=== PATIENT | male | born 1945 | race Caucasian/White ===

== ENCOUNTER 2016-06-01 15:06 | Inpatient (IN) | payer MEDICARE, MEDICAID ==
[~2016-06-01] VITALS: Ht 180.3 cm; Wt 65.4 kg
[~2016-06-01 15:06] MED LIST: ACID1PAC PO; AMLO-511 PO; AUD NEB; BENZ-26 PO; BUDE0.5A3 NEB; DICL1OS OD; DIVA500T69 PO; DSS100 PO; FURO40 PO; INSNOV SQ; IPRNEB IH; LEVO75 PO; LORA-192 PO; MOM30 PO; MULT-1238 PO; ONDA-55 PO; PANT40TA25 PO; VITAD400 PO; ZOLP5TAB2 PO; [UNRECOGNIZED DRUG - CODE] PO
[2016-06-01 15:42] LABS: GLUCOSE,POINT OF CARE 135 MG/DL (70-110)
[2016-06-01] MEDS ORDERED: ATOR40TA28 PO (16:08)
[2016-06-01] MEDS ORDERED: METO25 PO (16:08)
[2016-06-01] MEDS ORDERED: CLOP75 PO (16:08)
[2016-06-01] MEDS ORDERED: LURA40 PO (16:08)
[2016-06-01] MEDS ORDERED: MUPIROCIN CALCIUM 2% 22 GM OINTMENT TP ONE (20:45)
[2016-06-01] MEDS ORDERED: LORazepam 1 MG TABLET PO PRN (21:00)
[2016-06-01] MEDS ORDERED: ZOLPIDEM TARTRATE 5 MG TABLET PO PRN (21:00)
[2016-06-01] MEDS ORDERED: HALOPERIDOL 5 MG TABLET PO PRN (21:00)
[2016-06-01 21:31] LABS: ANION GAP 10 mmol/L (8-16); CALCIUM, TOTAL 9.6 mg/dL (8.8-10.5); CARBON DIOXIDE 26 mmol/L (22-29); CHLORIDE 104 mmol/L (98-107); CREATININE 2.24 mg/dL (0.60-1.30); GLOMERULAR FILTR. RATE CALC 29 mL/min (>60); POTASSIUM 4.2 mmol/L (3.5-5.1); SODIUM SERUM 140 mmol/L (136-145); UREA NITROGEN, BLOOD 62 mg/dL (7-18)
[2016-06-01 21:46] LABS: ALANINE AMINOTRANSFERASE 25 U/L (12-78); ALBUMIN 3.4 g/dL (3.4-5.0); ASPARTATE AMINOTRANSFERASE 29 U/L (15-37); BILIRUBIN,TOTAL 0.2 mg/dL (0.1-1.0); THYROID STIMULATING HORMONE 1.16 uIU/mL (0.36-3.74); TOTAL PROTEIN, SERUM 7.5 g/dL (6.4-8.2); VALPROIC ACID 13 mcg/mL (50-100)
[2016-06-01] MEDS: RisperiDONE 2 MG TABLET PO SCH (23:30)
[2016-06-02 02:55] VITALS: BP 105/63
[2016-06-02 03:02] VITALS: BP 105/63
[2016-06-02] MEDS: RisperiDONE 2 MG TABLET PO SCH ×2 (09:31→18:55)
[2016-06-02] MEDS ORDERED: DEXTROSE 50%-WATER 25 GM/50 ML SYRINGE IVP PRN (15:15)
[2016-06-02] MEDS ORDERED: INSULIN ASPART 100 UNITS/ML SQ PRN (15:15)
[2016-06-02] MEDS ORDERED: LEVO100 PO (15:25)
[2016-06-02 16:00] VITALS: BP 114/72
[2016-06-03 06:13] LABS: GLUCOSE,POINT OF CARE 105 MG/DL (70-110)
[2016-06-03] MEDS: MULTIVITAMINS WITH MINERALS, THERAPEUTIC TABLET PO SCH (09:50)
[2016-06-03] MEDS: CLOPIDOGREL BISULFATE 75 MG TABLET PO SCH (09:51)
[2016-06-03] MEDS: DIVALPROEX SODIUM 500 MG ER TABLET PO SCH ×2 (09:53→17:24)
[2016-06-03] MEDS: RisperiDONE 3 MG TABLET PO SCH ×2 (09:53→17:24)
[2016-06-03] MEDS: MUPIROCIN CALCIUM 2% 22 GM OINTMENT NASAL SCH ×2 (11:31→17:24)
[2016-06-03 11:32] LABS: GLUCOSE,POINT OF CARE 110 MG/DL (70-110)
[2016-06-03 16:26] VITALS: BP 138/75
[2016-06-04] MEDS: MUPIROCIN CALCIUM 2% 22 GM OINTMENT NASAL SCH ×2 (09:00→17:47)
[2016-06-04] MEDS: RisperiDONE 3 MG TABLET PO SCH ×2 (13:44→17:47)
[2016-06-04] MEDS: CLOPIDOGREL BISULFATE 75 MG TABLET PO SCH (13:44)
[2016-06-04] MEDS: MULTIVITAMINS WITH MINERALS, THERAPEUTIC TABLET PO SCH (13:44)
[2016-06-04] MEDS: DIVALPROEX SODIUM 500 MG ER TABLET PO SCH ×2 (13:44→17:47)
[2016-06-04] MEDS: SULFAMETHOX/TRIMETH DS 800-160 MG/TABLET PO SCH ×2 (13:44→17:47)
[2016-06-04] MEDS: DOXYCYCLINE 100 MG CAPSULE PO SCH ×2 (13:45→18:50)
[2016-06-04 14:26] LABS: APPEARANCE,URINE CLEAR (CLEAR); GLUCOSE, URINE (UA) NEGATIVE (NEGATIVE); KETONES,URINE NEGATIVE (NEGATIVE); LEUKOCYTE ESTERASE ,URINE NEGATIVE (NEGATIVE); OCCULT BLOOD,URINE NEGATIVE (NEGATIVE); PROTEIN,URINE POS 1+ (NEGATIVE)
[2016-06-04 14:27] LABS: ADD UA MICROSCOPIC NO
[2016-06-04 19:38] VITALS: BP 129/77
[2016-06-05] MEDS: MULTIVITAMINS WITH MINERALS, THERAPEUTIC TABLET PO SCH (08:56)
[2016-06-05] MEDS: DOXYCYCLINE 100 MG CAPSULE PO SCH (08:56)
[2016-06-05] MEDS: RisperiDONE 3 MG TABLET PO SCH (08:57)
[2016-06-05] MEDS: CLOPIDOGREL BISULFATE 75 MG TABLET PO SCH (08:57)
[2016-06-05] MEDS: SULFAMETHOX/TRIMETH DS 800-160 MG/TABLET PO SCH (08:57)
[2016-06-05] MEDS: DIVALPROEX SODIUM 500 MG ER TABLET PO SCH (08:57)
[2016-06-05] MEDS: MUPIROCIN CALCIUM 2% 22 GM OINTMENT NASAL SCH (09:00)
[2016-06-05 12:24] VITALS: BP 104/62
[2016-06-05] MEDS ORDERED: DOXY150T PO (12:46)
[2016-06-05] MEDS ORDERED: MUPI1OIN4 NS (12:47)
[2016-06-05] MEDS ORDERED: BACTDSB PO (12:48)
[2016-06-05] MEDS ORDERED: RISP3 PO (12:48)
== END 2016-06-05 14:20 | disposition home or self-care (01) | DRG 750 ==
LOC: EMS 15:08 → 3EI 06-02 00:05
PROVIDERS: ADMIT Psychiatry & Neurology Child & Adolescent Psychiatry; ATTEND Psychiatry & Neurology Child & Adolescent Psychiatry
DX: F25.0 Schizoaffective disorder, bipolar type (principal); J11.00 Influenza due to unidentified influenza virus with unspecified type of pneumonia; N17.9 Acute kidney failure, unspecified; I13.0 Hypertensive heart and chronic kidney disease with heart failure and stage 1 through stage 4 chronic kidney disease, or unspecified chronic kidney disease; I50.42 Chronic combined systolic (congestive) and diastolic (congestive) heart failure; E11.52 Type 2 diabetes mellitus with diabetic peripheral angiopathy with gangrene; D64.9 Anemia, unspecified; S91.105A Unspecified open wound of left lesser toe(s) without damage to nail, initial encounter; E11.21 Type 2 diabetes mellitus with diabetic nephropathy; E78.5 Hyperlipidemia, unspecified; E03.9 Hypothyroidism, unspecified; N18.3 Chronic kidney disease, stage 3 (moderate); I25.10 Atherosclerotic heart disease of native coronary artery without angina pectoris; X58.XXXA Exposure to other specified factors, initial encounter; E55.9 Vitamin D deficiency, unspecified; Z53.29 Procedure and treatment not carried out because of patient's decision for other reasons; K21.9 Gastro-esophageal reflux disease without esophagitis; E11.22 Type 2 diabetes mellitus with diabetic chronic kidney disease; Z79.899 Other long term (current) drug therapy; Z89.511 Acquired absence of right leg below knee; Z87.891 Personal history of nicotine dependence; Z79.4 Long term (current) use of insulin; Z89.422 Acquired absence of other left toe(s); Z22.322 Carrier or suspected carrier of Methicillin resistant Staphylococcus aureus; Y93.89 Activity, other specified; Y92.89 Other specified places as the place of occurrence of the external cause; Y99.8 Other external cause status
CPT/HCPCS: 82570; 82962; 84156; 84300; 84443; 84540; 87070; 87081; 87147; 87205; 99285; G0480

== ENCOUNTER → 2016-07-12 | Outpatient (CLI) | payer MEDICARE, OTHER ==
[~2016-07-12] VITALS: Ht 180.3 cm; Wt 70.7 kg
[~2016-07-12] MED LIST changes: +ACET-2247 PO; +ACET1TAB12 PO; -ACID1PAC PO; -AMLO-511 PO; +ASPI81 PO; +ATOR40TA28 PO; +BACTDSB PO; -BENZ-26 PO; +BISA10S PR; -BUDE0.5A3 NEB; +BUME1TAB30 PO; +CLOP75 PO; -DICL1OS OD; +DOXY150T PO; +EPOE10IM SQ; +HALOD100I IM; +INSU100V12 SQ; +LEVO100 PO; +LEVO50TA4 PO; -LEVO75 PO; -LORA-192 PO; +LORA0.5T2 PO; +METO25 PO; +MUPI1OIN4 NS; -ONDA-55 PO; +ONDA4 PO; +PETR113O TP; +PIPE2.255 IV; +RISP3 PO; +VANC500FZ IV; -VITAD400 PO; +ZOLP5 PO; -ZOLP5TAB2 PO; -[UNRECOGNIZED DRUG - CODE] PO
[2016-07-12 10:52] VITALS: BP 109/65
== END | disposition home or self-care (01) ==
LOC: HBOWC 09:53
PROVIDERS: ATTEND Emergency Medicine
DX: S91.102D Unspecified open wound of left great toe without damage to nail, subsequent encounter (principal); B95.62 Methicillin resistant Staphylococcus aureus infection as the cause of diseases classified elsewhere; E11.51 Type 2 diabetes mellitus with diabetic peripheral angiopathy without gangrene; B36.9 Superficial mycosis, unspecified; M21.42 Flat foot [pes planus] (acquired), left foot; F99 Mental disorder, not otherwise specified; E11.22 Type 2 diabetes mellitus with diabetic chronic kidney disease; I13.0 Hypertensive heart and chronic kidney disease with heart failure and stage 1 through stage 4 chronic kidney disease, or unspecified chronic kidney disease; N18.4 Chronic kidney disease, stage 4 (severe); I50.42 Chronic combined systolic (congestive) and diastolic (congestive) heart failure; E78.5 Hyperlipidemia, unspecified; K21.9 Gastro-esophageal reflux disease without esophagitis; E03.9 Hypothyroidism, unspecified; M79.675 Pain in left toe(s); Z87.891 Personal history of nicotine dependence; Z79.4 Long term (current) use of insulin; Z89.511 Acquired absence of right leg below knee; Z89.422 Acquired absence of other left toe(s); X58.XXXD Exposure to other specified factors, subsequent encounter
CPT/HCPCS: 11720; 97597

== ENCOUNTER 2016-07-16 11:17 | Emergency (ER) | payer MEDICARE, OTHER ==
[~2016-07-16] VITALS: Ht 170.2 cm; Wt 73.5 kg
[~2016-07-16 11:17] MED LIST changes: -ACET-2247 PO; -ACET1TAB12 PO; -ASPI81 PO; -ATOR40TA28 PO; -AUD NEB; -BISA10S PR; -BUME1TAB30 PO; -DSS100 PO; -EPOE10IM SQ; -FURO40 PO; -HALOD100I IM; -INSU100V12 SQ; -IPRNEB IH; -LEVO100 PO; -LEVO50TA4 PO; -LORA0.5T2 PO; -METO25 PO; -MOM30 PO; -ONDA4 PO; -PANT40TA25 PO; -PETR113O TP; -PIPE2.255 IV; -VANC500FZ IV; -ZOLP5 PO
[2016-07-16] MEDS ORDERED: HALOD100I IM (11:32)
[2016-07-16] MEDS ORDERED: LEVO50TA4 PO (11:32)
[2016-07-16] MEDS ORDERED: DSS100 PO (11:32)
[2016-07-16] MEDS ORDERED: ATOR40TA28 PO (11:32)
[2016-07-16 11:43] LABS: GLUCOSE,POINT OF CARE 128 MG/DL (70-110)
[2016-07-16 12:11] LABS: BASOPHILS # (AUTO) 0.04 K/uL (0.00-0.20); BASOPHILS % (AUTO) 0.6 % (0.0-2.0); EOSINOPHILS # (AUTO) 0.32 K/uL (0.00-0.70); EOSINOPHILS % (AUTO) 4.25 % (1.0-6.0); LYMPHOCYTES # (AUTO) 1.4 K/uL (1.0-4.8); LYMPHOCYTES % (AUTO) 18.2 % (22.0-44.0); MEAN CORPUSCULAR HEMOGLOBIN 27.2 pg (26.0-34.0); MEAN CORPUSCULAR HGB CONC 33.1 G/dL (31.0-37.0); MEAN CORPUSCULAR VOLUME 82 fL (80-100); MONOCYTES % (AUTO) 13.3 % (2.0-9.0); NEUTROPHILS # (AUTO) 4.8 K/uL (1.8-7.7); NEUTROPHILS % (AUTO) 63.7 % (40.0-70.0); PLATELET COUNT (AUTO) 312 K/uL (150-450); RED BLOOD CELL COUNT(AUTO) 2.46 MIL/uL (4.50-5.90); RED CELL DISTRIBUTION WIDTH 18.6 % (11.5-14.5); WHITE BLOOD COUNT (AUTO) 7.5 K/uL (4.5-11.0)
[2016-07-16 12:15] LABS: HEMOGLOBIN 6.7 g/dL (13.5-17.5)
[2016-07-16 12:16] LABS: HEMATOCRIT 20.2 % (41-53)
[2016-07-16 12:17] LABS: INR 1.2 (0.9-1.1); PROTHROMBIN TIME 12.7 SEC (9.4-11.6)
[2016-07-16 12:28] LABS: ANION GAP 8 mmol/L (8-16); CARBON DIOXIDE 24 mmol/L (22-29); CHLORIDE 104 mmol/L (98-107); CREATININE 2.77 mg/dL (0.60-1.30); GLOMERULAR FILTR. RATE CALC 23 mL/min (>60); POTASSIUM 4.4 mmol/L (3.5-5.1); SODIUM SERUM 136 mmol/L (136-145); UREA NITROGEN, BLOOD 60 mg/dL (7-18)
[2016-07-16 12:41] LABS: RBC MORPHOLOGY COMMENT ABNORMAL RBC MORPH
[2016-07-16 12:42] VITALS: BP 112/56
[2016-07-16 12:47] LABS: B-TYPE NATRIURETIC PEPTIDE 3100 pg/mL (0-100)
[2016-07-16 12:56] LABS: ALANINE AMINOTRANSFERASE 20 U/L (12-78); ALBUMIN 2.1 g/dL (3.4-5.0); ASPARTATE AMINOTRANSFERASE 14 U/L (15-37); BILIRUBIN,TOTAL 0.2 mg/dL (0.1-1.0); CREATINE KINASE MB 2.3 ng/mL (0-5); CREATINE KINASE, TOTAL 122 U/L (39-308); TOTAL PROTEIN, SERUM 5.9 g/dL (6.4-8.2)
[2016-07-16] MEDS ORDERED: PANTOPRAZOLE SODIUM 80 MG in SODIUM CHLORIDE 0.9% 500 ML IV SCH (14:30)
[2016-07-16] MEDS ORDERED: PANTOPRAZOLE SODIUM 80 MG in SODIUM CHLORIDE 0.9% 50 ML IV ONE (14:30)
[2016-07-16] MEDS ORDERED: INSULIN ASPART 100 UNITS/ML SQ PRN (14:45)
[2016-07-16] MEDS ORDERED: DEXTROSE 50%-WATER 25 GM/50 ML SYRINGE IVP PRN (14:45)
== END 2016-07-16 16:34 | disposition home or self-care (01) ==
LOC: EMS 11:21
DX: N17.9 Acute kidney failure, unspecified (principal); D64.9 Anemia, unspecified; I73.9 Peripheral vascular disease, unspecified; E11.9 Type 2 diabetes mellitus without complications; I10 Essential (primary) hypertension; I25.10 Atherosclerotic heart disease of native coronary artery without angina pectoris; E78.5 Hyperlipidemia, unspecified; E03.9 Hypothyroidism, unspecified; I50.42 Chronic combined systolic (congestive) and diastolic (congestive) heart failure; F17.200 Nicotine dependence, unspecified, uncomplicated; Z79.4 Long term (current) use of insulin; K92.2 Gastrointestinal hemorrhage, unspecified; F20.9 Schizophrenia, unspecified; Z89.511 Acquired absence of right leg below knee
CPT/HCPCS: 71010; 80053; 82550; 82553; 82962; 83880; 84484; 85025; 85610; 85730; 93005; 93306; 99285; C9113; J7040; J7050

== ENCOUNTER → 2016-07-24 | Outpatient (CLI) | payer MEDICARE, OTHER ==
[~2016-07-24] MED LIST changes: +ACET-2247 PO; +ACET1TAB12 PO; +ASPI81 PO; +ATOR40TA28 PO; +AUD NEB; -BACTDSB PO; +BISA10S PR; +BUME1TAB30 PO; -DOXY150T PO; +DSS100 PO; +EPOE10IM SQ; +FURO40 PO; +HALOD100I IM; +INSU100V12 SQ; +IPRNEB IH; +LEVO100 PO; +LEVO50TA4 PO; +LORA0.5T2 PO; +METO25 PO; +MOM30 PO; -MUPI1OIN4 NS; +ONDA4 PO; +PANT40TA25 PO; +PETR113O TP; +PIPE2.255 IV; +VANC500FZ IV; +ZOLP5 PO
[2016-07-24 10:17] VITALS: BP 123/61
== END | disposition home or self-care (01) ==
LOC: HBOWC 09:42
PROVIDERS: ATTEND Emergency Medicine
DX: E11.621 Type 2 diabetes mellitus with foot ulcer (principal); L97.521 Non-pressure chronic ulcer of other part of left foot limited to breakdown of skin; B35.1 Tinea unguium; E03.9 Hypothyroidism, unspecified; E11.52 Type 2 diabetes mellitus with diabetic peripheral angiopathy with gangrene; E11.21 Type 2 diabetes mellitus with diabetic nephropathy; E11.22 Type 2 diabetes mellitus with diabetic chronic kidney disease; I13.0 Hypertensive heart and chronic kidney disease with heart failure and stage 1 through stage 4 chronic kidney disease, or unspecified chronic kidney disease; N18.4 Chronic kidney disease, stage 4 (severe); I50.42 Chronic combined systolic (congestive) and diastolic (congestive) heart failure; E78.5 Hyperlipidemia, unspecified; K21.9 Gastro-esophageal reflux disease without esophagitis; Z79.4 Long term (current) use of insulin; Z89.422 Acquired absence of other left toe(s); Z89.511 Acquired absence of right leg below knee; Z87.891 Personal history of nicotine dependence
CPT/HCPCS: 97597

== ENCOUNTER 2016-07-29 15:45 | Inpatient (IN) | payer MEDICARE, OTHER ==
[~2016-07-29] VITALS: Ht 175.3 cm; Wt 86.9 kg
[2016-07-29] VITALS (9 sets, daily range): BP systolic 109–124; BP diastolic 51–64
[~2016-07-29 15:45] MED LIST changes: -ACET-2247 PO; -ACET1TAB12 PO; -ASPI81 PO; -AUD NEB; -BISA10S PR; -BUME1TAB30 PO; -EPOE10IM SQ; -FURO40 PO; -INSU100V12 SQ; -IPRNEB IH; -LEVO100 PO; -LORA0.5T2 PO; -METO25 PO; -MOM30 PO; -ONDA4 PO; -PANT40TA25 PO; -PETR113O TP; -PIPE2.255 IV; -VANC500FZ IV; -ZOLP5 PO
[2016-07-29] MEDS ORDERED: FURO40 PO (16:19)
[2016-07-29 17:16] LABS: BASOPHILS % (AUTO) 0.2 % (0.0-2.0); EOSINOPHILS % (AUTO) 2.2 % (1.0-6.0); LYMPHOCYTES # (AUTO) 1.6 K/uL (1.0-4.8); LYMPHOCYTES % (AUTO) 20.6 % (22.0-44.0); MEAN CORPUSCULAR HEMOGLOBIN 26.1 pg (26.0-34.0); MEAN CORPUSCULAR HGB CONC 31.9 G/dL (31.0-37.0); MEAN CORPUSCULAR VOLUME 82 fL (80-100); MONOCYTES # (AUTO) 0.7 K/uL (0.1-1.0); MONOCYTES % (AUTO) 8.4 % (2.0-9.0); NEUTROPHILS # (AUTO) 5.3 K/uL (1.8-7.7); NEUTROPHILS % (AUTO) 68.6 % (40.0-70.0); PLATELET COUNT (AUTO) 184 K/uL (150-450); RED BLOOD CELL COUNT(AUTO) 2.66 MIL/uL (4.50-5.90); RED CELL DISTRIBUTION WIDTH 19.7 % (11.5-14.5); WHITE BLOOD COUNT (AUTO) 7.8 K/uL (4.5-11.0)
[2016-07-29 17:26] LABS: ANION GAP 10 mmol/L (8-16); CALCIUM, TOTAL 8.4 mg/dL (8.8-10.5); CARBON DIOXIDE 26 mmol/L (22-29); CHLORIDE 101 mmol/L (98-107); CREATININE 2.41 mg/dL (0.60-1.30); GLOMERULAR FILTR. RATE CALC 27 mL/min (>60); POTASSIUM 4.4 mmol/L (3.5-5.1); SODIUM SERUM 137 mmol/L (136-145); UREA NITROGEN, BLOOD 67 mg/dL (7-18)
[2016-07-29 17:27] LABS: HEMOGLOBIN 6.9 g/dL (13.5-17.5)
[2016-07-29 17:28] LABS: HEMATOCRIT 21.8 % (41-53)
[2016-07-29 17:31] LABS: INR 1.1 (0.9-1.1); PROTHROMBIN TIME 11.5 SEC (9.4-11.6)
[2016-07-29 17:32] LABS: ALANINE AMINOTRANSFERASE 12 U/L (12-78); ALBUMIN 2.2 g/dL (3.4-5.0); ASPARTATE AMINOTRANSFERASE 10 U/L (15-37); BILIRUBIN,TOTAL 0.2 mg/dL (0.1-1.0); CREATINE KINASE, TOTAL 74 U/L (39-308); TOTAL PROTEIN, SERUM 6.1 g/dL (6.4-8.2)
[2016-07-29 17:43] LABS: B-TYPE NATRIURETIC PEPTIDE 3010 pg/mL (0-100)
[2016-07-29 17:52] LABS: RBC MORPHOLOGY COMMENT ABNORMAL RBC MORPH
[2016-07-29 18:32] LABS: APPEARANCE,URINE CLEAR (CLEAR); GLUCOSE, URINE (UA) NEGATIVE (NEGATIVE); KETONES,URINE NEGATIVE (NEGATIVE); LEUKOCYTE ESTERASE ,URINE NEGATIVE (NEGATIVE); OCCULT BLOOD,URINE NEGATIVE (NEGATIVE); PROTEIN,URINE NEGATIVE (NEGATIVE)
[2016-07-29 18:34] LABS: ADD UA MICROSCOPIC NO
[2016-07-29] MEDS ORDERED: LEVO100 PO (18:35)
[2016-07-29] MEDS ORDERED: FUROSEMIDE 20 MG/2 ML VIAL IVP ONE (18:45)
[2016-07-29] MEDS ORDERED: FUROSEMIDE 40 MG/4 ML VIAL IVP ONE (18:45)
[2016-07-29] MEDS ORDERED: ACETAMINOPHEN 325 MG TABLET PO PRN (19:45)
[2016-07-29] MEDS ORDERED: 0.9% SODIUM CHLORIDE 10 ML SYRINGE IVP PRN (19:45)
[2016-07-29] MEDS ORDERED: ONDANSETRON HCL 4 MG/2 ML VIAL IVP PRN ×2 (19:45→22:30)
[2016-07-29] MEDS ORDERED: SODIUM CHLORIDE 0.9% 250 ML IV ONE ×2 (19:45→23:10)
[2016-07-29] MEDS ORDERED: DEXTROSE 50%-WATER 25 GM/50 ML SYRINGE IVP PRN (22:30)
[2016-07-29] MEDS ORDERED: BISACODYL 10 MG RECTAL RECTAL SUPPOSITORY PR PRN (22:30)
[2016-07-29] MEDS ORDERED: MAGNESIUM HYDROXIDE SUSPENSION 30 ML UDCUP PO PRN (22:30)
[2016-07-29] MEDS ORDERED: ZOLPIDEM TARTRATE 5 MG TABLET PO PRN (22:30)
[2016-07-29] MEDS ORDERED: LORazepam 0.5 MG TABLET PO PRN (22:30)
[2016-07-30] VITALS (14 sets, daily range): BP systolic 108–126; BP diastolic 46–70
[2016-07-30 02:07] LABS: GLUCOSE,POINT OF CARE 165 MG/DL (70-110)
[2016-07-30] MEDS: LEVOTHYROXINE SODIUM 100 MCG TABLET PO SCH (05:56)
[2016-07-30] MEDS: INSULIN ASPART 100 UNITS/ML SQ PRN ×3 (06:01→20:57)
[2016-07-30 07:09] LABS: EOSINOPHILS % (AUTO) 1.5 % (1.0-6.0); HEMATOCRIT 26.1 % (41-53); HEMOGLOBIN 8.6 g/dL (13.5-17.5); LYMPHOCYTES # (AUTO) 1.3 K/uL (1.0-4.8); LYMPHOCYTES % (AUTO) 14.9 % (22.0-44.0); MEAN CORPUSCULAR VOLUME 82 fL (80-100); MONOCYTES # (AUTO) 0.8 K/uL (0.1-1.0); NEUTROPHILS # (AUTO) 6.3 K/uL (1.8-7.7); NEUTROPHILS % (AUTO) 74.6 % (40.0-70.0); PLATELET COUNT (AUTO) 183 K/uL (150-450); RED BLOOD CELL COUNT(AUTO) 3.18 MIL/uL (4.50-5.90); RED CELL DISTRIBUTION WIDTH 18.8 % (11.5-14.5); WHITE BLOOD COUNT (AUTO) 8.4 K/uL (4.5-11.0)
[2016-07-30 07:29] LABS: ALBUMIN 2.1 g/dL (3.4-5.0); BILIRUBIN,TOTAL 0.3 mg/dL (0.1-1.0); CALCIUM, TOTAL 8.2 mg/dL (8.8-10.5); CHOL/HDL RATIO 2.7 (4.2-7.3); CREATININE 2.24 mg/dL (0.60-1.30); MAGNESIUM 1.7 mg/dL (1.80-2.40); POTASSIUM 4.1 mmol/L (3.5-5.1); THYROID STIMULATING HORMONE 3.12 uIU/mL (0.36-3.74); TOTAL PROTEIN, SERUM 5.9 g/dL (6.4-8.2)
[2016-07-30 08:37] LABS: GLUCOSE COMMENT 1 Received Meds; GLUCOSE,POINT OF CARE 158 MG/DL (70-110)
[2016-07-30] MEDS: DOCUSATE SODIUM 100 MG CAPSULE PO SCH ×2 (09:00→20:43)
[2016-07-30] MEDS: DIVALPROEX SODIUM 500 MG ER TABLET PO SCH ×2 (09:01→20:44)
[2016-07-30] MEDS: MULTIVITAMINS, THERAPEUTIC TABLET PO SCH (09:01)
[2016-07-30] MEDS: RisperiDONE 3 MG TABLET PO SCH ×2 (09:01→20:44)
[2016-07-30] MEDS ORDERED: ACETAMINOPHEN 325 MG TABLET PO PRN (10:00)
[2016-07-30] MEDS ORDERED: EPOETIN ALFA 10,000 UNITS/ML VIAL SQ SCH (10:30)
[2016-07-30] MEDS ORDERED: MAGNESIUM SULFATE 2 GM in DEXTROSE 5%-WATER 50 ML IV PRN (11:00)
[2016-07-30] MEDS ORDERED: MAGNESIUM SULFATE 4 GM/WATER 100 ML IV PRN (11:00)
[2016-07-30] MEDS: MAGNESIUM OXIDE 400 MG TABLET PO PRN ×3 (11:16→23:04)
[2016-07-30] MEDS: ACETAMINOPHEN/CODEINE 300-30 MG TABLET PO PRN ×2 (11:16→18:51)
[2016-07-30 11:47] LABS: RBC MORPHOLOGY COMMENT ABNORMAL RBC MORPH
[2016-07-30] MEDS ORDERED: MAGNESIUM SULFATE 3 GM in DEXTROSE 5%-WATER 100 ML IV ONE (16:45)
[2016-07-30 19:51] LABS: GLUCOSE,POINT OF CARE 136 MG/DL (70-110)
[2016-07-30 20:02] LABS: GLUCOSE,POINT OF CARE 198 MG/DL (70-110)
[2016-07-30] MEDS: BUMETANIDE 0.25 MG/ML 10 ML VIAL IVP SCH (20:43)
[2016-07-30] MEDS ORDERED: INSULIN DETEMIR 100 UNITS/ML SQ SCH (21:00)
[2016-07-30] MEDS ORDERED: ATORVASTATIN CALCIUM 40 MG TABLET PO SCH (21:00)
[2016-07-31 00:47] VITALS: BP 108/52
[2016-07-31] MEDS: ACETAMINOPHEN/CODEINE 300-30 MG TABLET PO PRN ×2 (00:51→08:40)
[2016-07-31 04:20] VITALS: BP 117/59
[2016-07-31] MEDS: LEVOTHYROXINE SODIUM 100 MCG TABLET PO SCH (06:22)
[2016-07-31 06:45] LABS: BASOPHILS % (AUTO) 0.6 % (0.0-2.0); EOSINOPHILS % (AUTO) 2.9 % (1.0-6.0); HEMATOCRIT 23.9 % (41-53); HEMOGLOBIN 7.9 g/dL (13.5-17.5); LYMPHOCYTES # (AUTO) 1.8 K/uL (1.0-4.8); MEAN CORPUSCULAR HEMOGLOBIN 27.1 pg (26.0-34.0); MEAN CORPUSCULAR HGB CONC 33.1 G/dL (31.0-37.0); MEAN CORPUSCULAR VOLUME 82 fL (80-100); MONOCYTES % (AUTO) 11.9 % (2.0-9.0); NEUTROPHILS # (AUTO) 5.1 K/uL (1.8-7.7); NEUTROPHILS % (AUTO) 62.6 % (40.0-70.0); PLATELET COUNT (AUTO) 178 K/uL (150-450); RED BLOOD CELL COUNT(AUTO) 2.92 MIL/uL (4.50-5.90); RED CELL DISTRIBUTION WIDTH 19.2 % (11.5-14.5); WHITE BLOOD COUNT (AUTO) 8.2 K/uL (4.5-11.0)
[2016-07-31 07:33] VITALS: BP 108/50
[2016-07-31 07:33] LABS: RBC MORPHOLOGY COMMENT ABNORMAL RBC MORPH
[2016-07-31 07:44] LABS: CALCIUM, TOTAL 7.9 mg/dL (8.8-10.5); CREATININE 2.15 mg/dL (0.60-1.30); MAGNESIUM 1.7 mg/dL (1.80-2.40)
[2016-07-31 07:47] LABS: GLUCOSE,POINT OF CARE 90 MG/DL (70-110)
[2016-07-31] MEDS: MAGNESIUM OXIDE 400 MG TABLET PO PRN (08:40)
[2016-07-31] MEDS: DOCUSATE SODIUM 100 MG CAPSULE PO SCH (08:41)
[2016-07-31] MEDS: RisperiDONE 3 MG TABLET PO SCH (08:41)
[2016-07-31] MEDS: MULTIVITAMINS, THERAPEUTIC TABLET PO SCH (08:41)
[2016-07-31] MEDS: DIVALPROEX SODIUM 500 MG ER TABLET PO SCH (08:41)
[2016-07-31] MEDS: BUMETANIDE 0.25 MG/ML 10 ML VIAL IVP SCH (08:42)
[2016-07-31 11:16] VITALS: BP 116/48
[2016-07-31] MEDS ORDERED: ATOR40TA28 PO (14:40)
[2016-07-31] MEDS ORDERED: BUME1TAB30 PO (14:58)
[2016-07-31] MEDS ORDERED: EPOE10IM SQ (15:00)
[2016-07-31] MEDS ORDERED: INSU100V12 SQ (15:01)
[2016-07-31] MEDS ORDERED: ACET1TAB12 PO (15:03)
[2016-07-31] MEDS ORDERED: ACET-2247 PO (15:04)
[2016-07-31] MEDS ORDERED: BISA10S PR (15:05)
[2016-07-31] MEDS ORDERED: INSNOV SQ (15:06)
[2016-07-31] MEDS ORDERED: LORA0.5T2 PO (15:07)
[2016-07-31] MEDS ORDERED: MOM30 PO (15:08)
[2016-07-31] MEDS ORDERED: ONDA4 PO (15:09)
[2016-07-31] MEDS ORDERED: ZOLP5 PO (15:09)
[2016-07-31 15:34] VITALS: BP 111/42
[2016-08-01 01:42] LABS: GLUCOSE,POINT OF CARE 176 MG/DL (70-110)
[2016-08-08 14:43] LABS: GLUCOSE,POINT OF CARE 139 MG/DL (70-110)
[2016-08-08 14:43] LABS: GLUCOSE,POINT OF CARE 159 MG/DL (70-110)
== END 2016-07-31 17:35 | DRG 291 ==
LOC: EMS 15:48 → 5S 20:22
PROVIDERS: ADMIT Internal Medicine Geriatric Medicine; ATTEND Internal Medicine Geriatric Medicine
PROC: 30233N1 Transfusion of Nonautologous Red Blood Cells into Peripheral Vein, Percutaneous Approach (ICD-10-PCS; principal; 2016-07-29)
DX: I13.0 Hypertensive heart and chronic kidney disease with heart failure and stage 1 through stage 4 chronic kidney disease, or unspecified chronic kidney disease (principal); I50.43 Acute on chronic combined systolic (congestive) and diastolic (congestive) heart failure; N17.9 Acute kidney failure, unspecified; E11.52 Type 2 diabetes mellitus with diabetic peripheral angiopathy with gangrene; D64.9 Anemia, unspecified; E11.22 Type 2 diabetes mellitus with diabetic chronic kidney disease; N18.9 Chronic kidney disease, unspecified; E03.9 Hypothyroidism, unspecified; R60.1 Generalized edema; F17.200 Nicotine dependence, unspecified, uncomplicated; I25.10 Atherosclerotic heart disease of native coronary artery without angina pectoris; D63.1 Anemia in chronic kidney disease; E78.5 Hyperlipidemia, unspecified; F25.9 Schizoaffective disorder, unspecified; F31.9 Bipolar disorder, unspecified; I25.5 Ischemic cardiomyopathy; Z87.11 Personal history of peptic ulcer disease; Z91.19 Patient's noncompliance with other medical treatment and regimen; Z98.49 Cataract extraction status, unspecified eye; Z89.9 Acquired absence of limb, unspecified; Z89.511 Acquired absence of right leg below knee
CPT/HCPCS: 36430; 82271; 82306; 82607; 82746; 82962; 83036; 83735; 83970; 84439; 84443; 86850; 86900; 86901; 86920; 87081; 93005; 96374; 99285; J0885; J1940; J3475; J3490; J7050; J7060; P9016

== ENCOUNTER 2016-08-01 14:23 | Inpatient (IN) | payer MEDICARE, OTHER ==
[~2016-08-01] VITALS: Ht 180.3 cm; Wt 93.6 kg
[~2016-08-01 14:23] MED LIST changes: +ACET-2247 PO; +ACET1TAB12 PO; +BISA10S PR; +BUME1TAB30 PO; +EPOE10IM SQ; +FURO40 PO; +INSU100V12 SQ; +LEVO100 PO; -LEVO50TA4 PO; +LORA0.5T2 PO; +MOM30 PO; +ONDA4 PO; +ZOLP5 PO
[2016-08-01 14:42] LABS: GLUCOSE,POINT OF CARE 245 MG/DL (70-110)
[2016-08-01 15:20] LABS: BASOPHILS # (AUTO) 0.03 K/uL (0.00-0.20); BASOPHILS % (AUTO) 0.2 % (0.0-2.0); EOSINOPHILS # (AUTO) 0.01 K/uL (0.00-0.70); EOSINOPHILS % (AUTO) 0.08 % (1.0-6.0); HEMATOCRIT 24.7 % (41-53); LYMPHOCYTES # (AUTO) 0.6 K/uL (1.0-4.8); LYMPHOCYTES % (AUTO) 3.4 % (22.0-44.0); MEAN CORPUSCULAR HEMOGLOBIN 26.9 pg (26.0-34.0); MEAN CORPUSCULAR HGB CONC 32.2 G/dL (31.0-37.0); MEAN CORPUSCULAR VOLUME 84 fL (80-100); MONOCYTES # (AUTO) 0.8 K/uL (0.1-1.0); MONOCYTES % (AUTO) 4.7 % (2.0-9.0); NEUTROPHILS # (AUTO) 16.2 K/uL (1.8-7.7); NEUTROPHILS % (AUTO) 91.6 % (40.0-70.0); PLATELET COUNT (AUTO) 170 K/uL (150-450); RED BLOOD CELL COUNT(AUTO) 2.96 MIL/uL (4.50-5.90); RED CELL DISTRIBUTION WIDTH 20.1 % (11.5-14.5); WHITE BLOOD COUNT (AUTO) 17.7 K/uL (4.5-11.0)
[2016-08-01 16:14] LABS: CREATININE 2.38 mg/dL (0.60-1.30); POTASSIUM 4.4 mmol/L (3.5-5.1)
[2016-08-01 16:20] LABS: ALBUMIN 1.9 g/dL (3.4-5.0); BILIRUBIN,TOTAL 0.3 mg/dL (0.1-1.0); TOTAL PROTEIN, SERUM 5.5 g/dL (6.4-8.2)
[2016-08-01 16:22] LABS: LACTIC ACID 1.8 mmol/L (0.4-2.0)
[2016-08-01] MEDS ORDERED: ACETAMINOPHEN 325 MG TABLET PO PRN (16:30)
[2016-08-01] MEDS ORDERED: ONDANSETRON HCL 4 MG/2 ML VIAL IVP PRN (16:30)
[2016-08-01] MEDS ORDERED: PIPERACILLIN/TAZO 3.375 GM/D5W 50 ML IV ONE (16:30)
[2016-08-01] MEDS ORDERED: 0.9% SODIUM CHLORIDE 10 ML SYRINGE IVP PRN (16:30)
[2016-08-01] MEDS ORDERED: FUROSEMIDE 40 MG/4 ML VIAL IVP ONE (17:00)
[2016-08-01 17:01] LABS: PROCALCITONIN (PCT) 3.93 ng/mL (<0.50)
[2016-08-01] MEDS ORDERED: HEPARIN SODIUM 25000 UNITS/D5W 250 ML IV ONE (17:30)
[2016-08-01] MEDS ORDERED: ASPIRIN 325 MG TABLET PO ONE (17:30)
[2016-08-01] MEDS ORDERED: HEPARIN SODIUM,PORCINE 5,000 UNITS/ML VIAL IVP PRN ×6 (17:30→23:45)
[2016-08-01] MEDS ORDERED: HEPARIN SODIUM 25000 UNITS/D5W 250 ML IV SCH (17:30)
[2016-08-01 17:44] LABS: INR 1.2 (0.9-1.1); PROTHROMBIN TIME 12.9 SEC (9.4-11.6)
[2016-08-01 19:07] LABS: GLUCOSE,POINT OF CARE 168 MG/DL (70-110)
[2016-08-01] MEDS: HEPARIN SODIUM 25000 UNITS/D5W 250 ML IV PRN (20:30)
[2016-08-01] MEDS ORDERED: BISACODYL 10 MG RECTAL RECTAL SUPPOSITORY PR PRN (23:30)
[2016-08-01] MEDS ORDERED: LORazepam 2 MG/ML VIAL IVP PRN (23:30)
[2016-08-01] MEDS ORDERED: HEPARIN SODIUM 25000 UNITS/D5W 250 ML IV PRN (23:44)
[2016-08-01] MEDS ORDERED: ALBUTEROL SULFATE 2.5 MG/0.5 ML NEB SOLUTION NEB PRN (23:45)
[2016-08-01] MEDS ORDERED: IPRATROPIUM BROMIDE 0.5 MG/2.5 ML NEB SOLUTION NEB PRN (23:45)
[2016-08-01] MEDS ORDERED: DEXTROSE 50%-WATER 25 GM/50 ML SYRINGE IVP PRN (23:45)
[2016-08-02] VITALS (8 sets, daily range): BP systolic 84–128; BP diastolic 51–65
[2016-08-02] MEDS ORDERED: HEPARIN SODIUM,PORCINE 5,000 UNITS/ML VIAL IVP PRN (00:12)
[2016-08-02 00:20] LABS: BASOPHILS # (AUTO) 0.08 K/uL (0.00-0.20); BASOPHILS % (AUTO) 0.5 % (0.0-2.0); EOSINOPHILS # (AUTO) 0.06 K/uL (0.00-0.70); EOSINOPHILS % (AUTO) 0.39 % (1.0-6.0); HEMATOCRIT 24.1 % (41-53); HEMOGLOBIN 7.7 g/dL (13.5-17.5); LYMPHOCYTES # (AUTO) 1.5 K/uL (1.0-4.8); LYMPHOCYTES % (AUTO) 10.1 % (22.0-44.0); MEAN CORPUSCULAR HEMOGLOBIN 26.6 pg (26.0-34.0); MEAN CORPUSCULAR HGB CONC 31.9 G/dL (31.0-37.0); MEAN CORPUSCULAR VOLUME 83 fL (80-100); MONOCYTES # (AUTO) 1.4 K/uL (0.1-1.0); MONOCYTES % (AUTO) 9.3 % (2.0-9.0); NEUTROPHILS # (AUTO) 11.6 K/uL (1.8-7.7); NEUTROPHILS % (AUTO) 79.7 % (40.0-70.0); PLATELET COUNT (AUTO) 165 K/uL (150-450); WHITE BLOOD COUNT (AUTO) 14.5 K/uL (4.5-11.0)
[2016-08-02] MEDS: HEPARIN SODIUM 25000 UNITS/D5W 250 ML IV PRN ×2 (00:30→17:26)
[2016-08-02] MEDS ORDERED: VANCOMYCIN HCL 1 GM/D5% WATER 200 ML IV ONE ×2 (00:30→02:30)
[2016-08-02 00:32] LABS: INR 1.3 (0.9-1.1); PROTHROMBIN TIME 13.5 SEC (9.4-11.6)
[2016-08-02] MEDS ORDERED: SODIUM CHLORIDE 0.9% 250 ML IV ONE (00:47)
[2016-08-02] MEDS: MORPHINE SULFATE 2 MG/ML SYRINGE IVP PRN ×2 (02:18→22:39)
[2016-08-02] MEDS ORDERED: PIPERACILLIN/TAZO 3.375 GM/D5W 50 ML IV SCH (04:00)
[2016-08-02] MEDS: LEVOTHYROXINE SODIUM 100 MCG TABLET PO SCH (06:25)
[2016-08-02 06:28] LABS: INR 1.2 (0.9-1.1); PROTHROMBIN TIME 12.7 SEC (9.4-11.6)
[2016-08-02 06:39] LABS: BASOPHILS # (AUTO) 0.04 K/uL (0.00-0.20); BASOPHILS % (AUTO) 0.3 % (0.0-2.0); EOSINOPHILS # (AUTO) 0.07 K/uL (0.00-0.70); EOSINOPHILS % (AUTO) 0.58 % (1.0-6.0); HEMATOCRIT 25.1 % (41-53); LYMPHOCYTES # (AUTO) 1.3 K/uL (1.0-4.8); LYMPHOCYTES % (AUTO) 10.5 % (22.0-44.0); MEAN CORPUSCULAR HEMOGLOBIN 26.9 pg (26.0-34.0); MEAN CORPUSCULAR VOLUME 84 fL (80-100); MONOCYTES # (AUTO) 1.1 K/uL (0.1-1.0); MONOCYTES % (AUTO) 8.7 % (2.0-9.0); NEUTROPHILS # (AUTO) 9.9 K/uL (1.8-7.7); NEUTROPHILS % (AUTO) 79.9 % (40.0-70.0); PLATELET COUNT (AUTO) 159 K/uL (150-450); RED BLOOD CELL COUNT(AUTO) 2.99 MIL/uL (4.50-5.90); RED CELL DISTRIBUTION WIDTH 20.2 % (11.5-14.5); WHITE BLOOD COUNT (AUTO) 12.4 K/uL (4.5-11.0)
[2016-08-02 06:59] LABS: HEMOGLOBIN A1C 6.8 % (4.5-6.2)
[2016-08-02 07:12] LABS: CALCIUM, TOTAL 7.9 mg/dL (8.8-10.5); CHOL/HDL RATIO 2.3 (4.2-7.3); CREATINE KINASE MB 11.2 ng/mL (0-5); CREATININE 2.4 mg/dL (0.60-1.30); MAGNESIUM 1.6 mg/dL (1.80-2.40); POTASSIUM 4.7 mmol/L (3.5-5.1); THYROID STIMULATING HORMONE 4.74 uIU/mL (0.36-3.74)
[2016-08-02 07:40] LABS: RBC MORPHOLOGY COMMENT ABNORMAL RBC MORPH
[2016-08-02] MEDS: INSULIN ASPART 100 UNITS/ML SQ PRN ×3 (07:47→17:50)
[2016-08-02] MEDS ORDERED: VANCOMYCIN HCL 1.5 GM in DEXTROSE 5%-WATER 250 ML IV SCH (08:00)
[2016-08-02] MEDS: BUMETANIDE 0.25 MG/ML 4 ML VIAL IVP SCH ×2 (08:20→20:13)
[2016-08-02] MEDS: PANTOPRAZOLE SODIUM 40 MG/VIAL IVP SCH (08:21)
[2016-08-02] MEDS: RisperiDONE 3 MG TABLET PO SCH ×2 (08:24→20:10)
[2016-08-02] MEDS: MULTIVITAMINS, THERAPEUTIC TABLET PO SCH (08:24)
[2016-08-02] MEDS: DOCUSATE SODIUM 100 MG CAPSULE PO SCH ×2 (08:26→20:09)
[2016-08-02] MEDS: DIVALPROEX SODIUM 500 MG ER TABLET PO SCH ×2 (08:26→21:15)
[2016-08-02] MEDS ORDERED: MAGNESIUM SULFATE 2 GM in DEXTROSE 5%-WATER 50 ML IV PRN (08:45)
[2016-08-02] MEDS ORDERED: MAGNESIUM OXIDE 400 MG TABLET PO PRN (08:45)
[2016-08-02] MEDS ORDERED: MAGNESIUM SULFATE 4 GM/WATER 100 ML IV PRN (08:45)
[2016-08-02 09:00] LABS: ALBUMIN 1.9 g/dL (3.4-5.0)
[2016-08-02 09:22] LABS: GLUCOSE COMMENT 1 Received Meds; GLUCOSE,POINT OF CARE 213 MG/DL (70-110)
[2016-08-02] MEDS: PIPERACILLIN SODIUM/TAZOBACTAM 2.25 GM in DEXTROSE 5%-WATER 50 ML IV SCH ×3 (10:32→21:16)
[2016-08-02 12:22] LABS: GLUCOSE COMMENT 1 Received Meds; GLUCOSE,POINT OF CARE 171 MG/DL (70-110)
[2016-08-02] MEDS: VITAMINS A & D 60 GM OINTMENT TP SCH (13:50)
[2016-08-02 17:52] LABS: GLUCOSE COMMENT 1 Received Meds; GLUCOSE,POINT OF CARE 165 MG/DL (70-110)
[2016-08-02] MEDS: ATORVASTATIN CALCIUM 40 MG TABLET PO SCH (20:09)
[2016-08-02] MEDS: INSULIN DETEMIR 100 UNITS/ML SQ SCH (20:16)
[2016-08-02 21:47] LABS: GLUCOSE COMMENT 1 Received Meds; GLUCOSE,POINT OF CARE 156 MG/DL (70-110)
[2016-08-02 22:47] LABS: APPEARANCE,URINE CLEAR (CLEAR); GLUCOSE, URINE (UA) NEGATIVE (NEGATIVE); KETONES,URINE NEGATIVE (NEGATIVE); LEUKOCYTE ESTERASE ,URINE NEGATIVE (NEGATIVE); OCCULT BLOOD,URINE NEGATIVE (NEGATIVE); PH,URINE 5.5 (5.0-8.0); PROTEIN,URINE NEGATIVE (NEGATIVE)
[2016-08-02 22:59] LABS: RBC,URINE None Seen /HPF (0-2)
[2016-08-03] VITALS (9 sets, daily range): BP systolic 108–126; BP diastolic 47–68
[2016-08-03] MEDS: ACETAMINOPHEN 325 MG TABLET PO PRN ×2 (00:47→16:01)
[2016-08-03] MEDS: PIPERACILLIN SODIUM/TAZOBACTAM 2.25 GM in DEXTROSE 5%-WATER 50 ML IV SCH ×4 (04:21→21:52)
[2016-08-03 05:57] LABS: BASOPHILS % (AUTO) 0.5 % (0.0-2.0); EOSINOPHILS % (AUTO) 2.9 % (1.0-6.0); HEMATOCRIT 21.4 % (41-53); HEMOGLOBIN 7.1 g/dL (13.5-17.5); LYMPHOCYTES # (AUTO) 1.3 K/uL (1.0-4.8); LYMPHOCYTES % (AUTO) 15.8 % (22.0-44.0); MEAN CORPUSCULAR HEMOGLOBIN 26.9 pg (26.0-34.0); MEAN CORPUSCULAR VOLUME 82 fL (80-100); MONOCYTES # (AUTO) 0.8 K/uL (0.1-1.0); MONOCYTES % (AUTO) 9.5 % (2.0-9.0); NEUTROPHILS # (AUTO) 5.9 K/uL (1.8-7.7); NEUTROPHILS % (AUTO) 71.3 % (40.0-70.0); PLATELET COUNT (AUTO) 164 K/uL (150-450); RED BLOOD CELL COUNT(AUTO) 2.63 MIL/uL (4.50-5.90); RED CELL DISTRIBUTION WIDTH 20.6 % (11.5-14.5); WHITE BLOOD COUNT (AUTO) 8.3 K/uL (4.5-11.0)
[2016-08-03] MEDS: INSULIN ASPART 100 UNITS/ML SQ PRN ×3 (06:04→21:17)
[2016-08-03] MEDS: LEVOTHYROXINE SODIUM 100 MCG TABLET PO SCH (06:05)
[2016-08-03 06:21] LABS: CALCIUM, TOTAL 7.8 mg/dL (8.8-10.5); CREATININE 2.55 mg/dL (0.60-1.30); MAGNESIUM 2.2 mg/dL (1.80-2.40); POTASSIUM 4.4 mmol/L (3.5-5.1)
[2016-08-03] MEDS ORDERED: VANCOMYCIN HCL 1.25 GM in DEXTROSE 5%-WATER 250 ML IV SCH (08:00)
[2016-08-03 08:06] LABS: GLUCOSE COMMENT 1 Received Meds; GLUCOSE,POINT OF CARE 165 MG/DL (70-110)
[2016-08-03] MEDS: DIVALPROEX SODIUM 500 MG ER TABLET PO SCH ×2 (08:47→20:21)
[2016-08-03] MEDS: MULTIVITAMINS, THERAPEUTIC TABLET PO SCH (08:47)
[2016-08-03] MEDS: RisperiDONE 3 MG TABLET PO SCH ×2 (08:47→20:21)
[2016-08-03] MEDS: PANTOPRAZOLE SODIUM 40 MG/VIAL IVP SCH (08:47)
[2016-08-03] MEDS: METOPROLOL TARTRATE 25 MG TABLET PO SCH ×2 (08:49→20:30)
[2016-08-03] MEDS: BUMETANIDE 0.25 MG/ML 4 ML VIAL IVP SCH ×3 (08:50→20:21)
[2016-08-03] MEDS: VITAMINS A & D 60 GM OINTMENT TP SCH (08:51)
[2016-08-03] MEDS: DOCUSATE SODIUM 100 MG CAPSULE PO SCH ×2 (08:51→20:21)
[2016-08-03] MEDS: ASPIRIN 81 MG CHEWABLE TABLET PO SCH (08:51)
[2016-08-03 09:23] LABS: RBC MORPHOLOGY COMMENT ABNORMAL RBC MORPH
[2016-08-03] MEDS ORDERED: SODIUM CHLORIDE 0.9% 250 ML IV ONE ×2 (11:10→14:26)
[2016-08-03 11:22] LABS: BASOPHILS # (AUTO) 0.07 K/uL (0.00-0.20); BASOPHILS % (AUTO) 0.8 % (0.0-2.0); EOSINOPHILS # (AUTO) 0.25 K/uL (0.00-0.70); HEMATOCRIT 23.6 % (41-53); HEMOGLOBIN 7.6 g/dL (13.5-17.5); LYMPHOCYTES # (AUTO) 1.2 K/uL (1.0-4.8); LYMPHOCYTES % (AUTO) 14.1 % (22.0-44.0); MEAN CORPUSCULAR VOLUME 84 fL (80-100); MONOCYTES # (AUTO) 0.8 K/uL (0.1-1.0); MONOCYTES % (AUTO) 9.4 % (2.0-9.0); NEUTROPHILS % (AUTO) 72.7 % (40.0-70.0); PLATELET COUNT (AUTO) 159 K/uL (150-450); RED CELL DISTRIBUTION WIDTH 20.3 % (11.5-14.5); WHITE BLOOD COUNT (AUTO) 8.2 K/uL (4.5-11.0)
[2016-08-03] MEDS ORDERED: METOCLOPRAMIDE HCL 5 MG/ML 2 ML VIAL IVP SCH (12:00)
[2016-08-03 12:01] LABS: CREATINE KINASE MB 1.4 ng/mL (0-5); CREATINE KINASE, TOTAL 108 U/L (39-308)
[2016-08-03 13:40] LABS: RBC MORPHOLOGY COMMENT ABNORMAL RBC MORPH
[2016-08-03 14:38] LABS: CREATININE 2.64 mg/dL (0.60-1.30); POTASSIUM 4.6 mmol/L (3.5-5.1)
[2016-08-03 14:39] LABS: CALCIUM, TOTAL 7.9 mg/dL (8.8-10.5)
[2016-08-03] MEDS ORDERED: HEPARIN SODIUM,PORCINE 5,000 UNITS/ML VIAL SQ SCH (16:00)
[2016-08-03] MEDS: MORPHINE SULFATE 2 MG/ML SYRINGE IVP PRN (17:08)
[2016-08-03] MEDS: ATORVASTATIN CALCIUM 40 MG TABLET PO SCH (20:21)
[2016-08-03] MEDS: INSULIN DETEMIR 100 UNITS/ML SQ SCH (21:17)
[2016-08-03] MEDS: ACETAMINOPHEN/CODEINE 300-30 MG TABLET PO PRN (21:19)
[2016-08-03] MEDS ORDERED: SODIUM CHLORIDE 0.9% 50 ML ONE (21:47)
[2016-08-03 23:22] LABS: GLUCOSE COMMENT 1 Received Meds; GLUCOSE,POINT OF CARE 153 MG/DL (70-110)
[2016-08-03 23:26] LABS: GLUCOSE,POINT OF CARE 120 MG/DL (70-110)
[2016-08-04] VITALS (7 sets, daily range): BP systolic 109–150; BP diastolic 48–66
[2016-08-04] MEDS: MORPHINE SULFATE 2 MG/ML SYRINGE IVP PRN ×2 (01:15→21:21)
[2016-08-04 02:22] LABS: GLUCOSE COMMENT 1 Received Meds; GLUCOSE,POINT OF CARE 162 MG/DL (70-110)
[2016-08-04] MEDS: PIPERACILLIN SODIUM/TAZOBACTAM 2.25 GM in DEXTROSE 5%-WATER 50 ML IV SCH ×4 (03:25→22:29)
[2016-08-04 06:20] LABS: BASOPHILS % (AUTO) 1.1 % (0.0-2.0); EOSINOPHILS % (AUTO) 4.8 % (1.0-6.0); HEMATOCRIT 22.7 % (41-53); HEMOGLOBIN 7.6 g/dL (13.5-17.5); LYMPHOCYTES # (AUTO) 1.1 K/uL (1.0-4.8); LYMPHOCYTES % (AUTO) 15.1 % (22.0-44.0); MEAN CORPUSCULAR HEMOGLOBIN 27.2 pg (26.0-34.0); MEAN CORPUSCULAR HGB CONC 33.3 G/dL (31.0-37.0); MEAN CORPUSCULAR VOLUME 82 fL (80-100); MONOCYTES # (AUTO) 0.7 K/uL (0.1-1.0); MONOCYTES % (AUTO) 9.7 % (2.0-9.0); NEUTROPHILS # (AUTO) 5.1 K/uL (1.8-7.7); NEUTROPHILS % (AUTO) 69.3 % (40.0-70.0); PLATELET COUNT (AUTO) 176 K/uL (150-450); RED BLOOD CELL COUNT(AUTO) 2.77 MIL/uL (4.50-5.90); RED CELL DISTRIBUTION WIDTH 20.7 % (11.5-14.5); WHITE BLOOD COUNT (AUTO) 7.4 K/uL (4.5-11.0)
[2016-08-04 06:30] LABS: ANION GAP 8 mmol/L (8-16); CALCIUM, TOTAL 8.1 mg/dL (8.8-10.5); CARBON DIOXIDE 26 mmol/L (22-29); CHLORIDE 101 mmol/L (98-107); CREATINE KINASE, TOTAL 67 U/L (39-308); CREATININE 2.67 mg/dL (0.60-1.30); GLOMERULAR FILTR. RATE CALC 24 mL/min (>60); POTASSIUM 4.3 mmol/L (3.5-5.1); SODIUM SERUM 135 mmol/L (136-145); UREA NITROGEN, BLOOD 62 mg/dL (7-18)
[2016-08-04] MEDS ORDERED: VANCOMYCIN HCL 1 GM/D5% WATER 200 ML IV SCH (08:00)
[2016-08-04] MEDS: PANTOPRAZOLE SODIUM 40 MG/VIAL IVP SCH (08:21)
[2016-08-04] MEDS: DOCUSATE SODIUM 100 MG CAPSULE PO SCH ×2 (08:22→21:14)
[2016-08-04] MEDS: BUMETANIDE 0.25 MG/ML 4 ML VIAL IVP SCH ×3 (08:22→21:13)
[2016-08-04] MEDS: ASPIRIN 81 MG CHEWABLE TABLET PO SCH (08:22)
[2016-08-04] MEDS: DIVALPROEX SODIUM 500 MG ER TABLET PO SCH ×2 (08:23→21:14)
[2016-08-04] MEDS: METOPROLOL TARTRATE 25 MG TABLET PO SCH ×2 (08:23→21:00)
[2016-08-04] MEDS: RisperiDONE 3 MG TABLET PO SCH ×2 (08:23→21:14)
[2016-08-04] MEDS: MULTIVITAMINS, THERAPEUTIC TABLET PO SCH (08:23)
[2016-08-04] MEDS: VITAMINS A & D 60 GM OINTMENT TP SCH (08:24)
[2016-08-04] MEDS: ACETAMINOPHEN/CODEINE 300-30 MG TABLET PO PRN ×2 (08:33→16:03)
[2016-08-04] MEDS: INSULIN ASPART 100 UNITS/ML SQ PRN ×3 (12:41→21:18)
[2016-08-04 13:11] LABS: GLUCOSE COMMENT 1 Received Meds; GLUCOSE,POINT OF CARE 152 MG/DL (70-110)
[2016-08-04 13:11] LABS: GLUCOSE,POINT OF CARE 118 MG/DL (70-110)
[2016-08-04] MEDS: INSULIN DETEMIR 100 UNITS/ML SQ SCH (21:00)
[2016-08-04] MEDS: ATORVASTATIN CALCIUM 40 MG TABLET PO SCH (21:14)
[2016-08-05] MEDS: ZOLPIDEM TARTRATE 5 MG TABLET PO PRN ×2 (01:04→21:11)
[2016-08-05] MEDS: PIPERACILLIN SODIUM/TAZOBACTAM 2.25 GM in DEXTROSE 5%-WATER 50 ML IV SCH ×4 (03:29→21:18)
[2016-08-05 04:43] VITALS: BP 119/50
[2016-08-05 06:29] LABS: BASOPHILS % (AUTO) 0.7 % (0.0-2.0); EOSINOPHILS % (AUTO) 7.1 % (1.0-6.0); HEMATOCRIT 22.3 % (41-53); HEMOGLOBIN 7.5 g/dL (13.5-17.5); LYMPHOCYTES # (AUTO) 1.1 K/uL (1.0-4.8); LYMPHOCYTES % (AUTO) 15.6 % (22.0-44.0); MEAN CORPUSCULAR HEMOGLOBIN 27.4 pg (26.0-34.0); MEAN CORPUSCULAR HGB CONC 33.5 G/dL (31.0-37.0); MEAN CORPUSCULAR VOLUME 82 fL (80-100); MONOCYTES # (AUTO) 0.8 K/uL (0.1-1.0); NEUTROPHILS # (AUTO) 4.6 K/uL (1.8-7.7); NEUTROPHILS % (AUTO) 65.6 % (40.0-70.0); PLATELET COUNT (AUTO) 186 K/uL (150-450); RED BLOOD CELL COUNT(AUTO) 2.72 MIL/uL (4.50-5.90); RED CELL DISTRIBUTION WIDTH 19.9 % (11.5-14.5); WHITE BLOOD COUNT (AUTO) 7.1 K/uL (4.5-11.0)
[2016-08-05 07:09] LABS: CALCIUM, TOTAL 8.2 mg/dL (8.8-10.5); CREATININE 2.74 mg/dL (0.60-1.30); POTASSIUM 4.5 mmol/L (3.5-5.1)
[2016-08-05 07:23] VITALS: BP 136/63
[2016-08-05] MEDS: BUMETANIDE 0.25 MG/ML 4 ML VIAL IVP SCH (07:57)
[2016-08-05 08:54] LABS: RBC MORPHOLOGY COMMENT ABNORMAL RBC MORPH
[2016-08-05] MEDS: PANTOPRAZOLE SODIUM 40 MG/VIAL IVP SCH (09:00)
[2016-08-05] MEDS: VANCOMYCIN HCL 750 MG in DEXTROSE 5%-WATER 150 ML IV SCH (09:13)
[2016-08-05] MEDS: MULTIVITAMINS, THERAPEUTIC TABLET PO SCH (09:49)
[2016-08-05] MEDS: DIVALPROEX SODIUM 500 MG ER TABLET PO SCH ×2 (09:49→20:31)
[2016-08-05] MEDS: VITAMINS A & D 60 GM OINTMENT TP SCH (09:49)
[2016-08-05] MEDS: RisperiDONE 3 MG TABLET PO SCH ×2 (09:49→20:32)
[2016-08-05] MEDS: DOCUSATE SODIUM 100 MG CAPSULE PO SCH ×2 (09:49→20:31)
[2016-08-05] MEDS: ASPIRIN 81 MG CHEWABLE TABLET PO SCH (09:49)
[2016-08-05] MEDS: METOPROLOL TARTRATE 25 MG TABLET PO SCH ×2 (09:49→20:32)
[2016-08-05 11:11] VITALS: BP 121/58
[2016-08-05 11:42] LABS: GLUCOSE COMMENT 1 Received Meds; GLUCOSE,POINT OF CARE 175 MG/DL (70-110)
[2016-08-05 11:47] LABS: GLUCOSE,POINT OF CARE 120 MG/DL (70-110)
[2016-08-05 11:47] LABS: GLUCOSE COMMENT 1 Received Meds; GLUCOSE,POINT OF CARE 151 MG/DL (70-110)
[2016-08-05] MEDS: INSULIN ASPART 100 UNITS/ML SQ PRN ×3 (11:51→20:51)
[2016-08-05 15:17] VITALS: BP 113/47
[2016-08-05 19:17] VITALS: BP 117/54
[2016-08-05] MEDS: ATORVASTATIN CALCIUM 40 MG TABLET PO SCH (20:31)
[2016-08-05 20:47] LABS: GLUCOSE COMMENT 1 Received Meds; GLUCOSE,POINT OF CARE 192 MG/DL (70-110)
[2016-08-05] MEDS: INSULIN DETEMIR 100 UNITS/ML SQ SCH (20:51)
[2016-08-05 21:02] LABS: GLUCOSE COMMENT 1 Received Meds; GLUCOSE,POINT OF CARE 174 MG/DL (70-110)
[2016-08-05] MEDS: MORPHINE SULFATE 4 MG/ML SYRINGE IVP PRN (21:12)
[2016-08-05] MEDS ORDERED: SODIUM CHLORIDE 0.9% 250 ML IV ONE (21:22)
[2016-08-05 23:45] VITALS: BP 120/57
[2016-08-06] MEDS: ACETAMINOPHEN/CODEINE 300-30 MG TABLET PO PRN (01:57)
[2016-08-06] MEDS: PIPERACILLIN SODIUM/TAZOBACTAM 2.25 GM in DEXTROSE 5%-WATER 50 ML IV SCH ×4 (03:46→21:27)
[2016-08-06 04:30] VITALS: BP 127/62
[2016-08-06 07:17] LABS: ANION GAP 10 mmol/L (8-16); CARBON DIOXIDE 26 mmol/L (22-29); CHLORIDE 102 mmol/L (98-107); CREATINE KINASE, TOTAL 48 U/L (39-308); CREATININE 2.87 mg/dL (0.60-1.30); GLOMERULAR FILTR. RATE CALC 22 mL/min (>60); POTASSIUM 4.8 mmol/L (3.5-5.1); SODIUM SERUM 138 mmol/L (136-145); UREA NITROGEN, BLOOD 61 mg/dL (7-18)
[2016-08-06 07:46] VITALS: BP 113/64
[2016-08-06] MEDS: VANCOMYCIN HCL 750 MG in DEXTROSE 5%-WATER 150 ML IV SCH ×2 (08:00→10:25)
[2016-08-06] MEDS ORDERED: VANCOMYCIN HCL 500 MG in DEXTROSE 5%-WATER 100 ML IV SCH (08:45)
[2016-08-06] MEDS: PANTOPRAZOLE SODIUM 40 MG/VIAL IVP SCH (09:21)
[2016-08-06] MEDS: DIVALPROEX SODIUM 500 MG ER TABLET PO SCH ×2 (09:21→21:24)
[2016-08-06] MEDS: RisperiDONE 3 MG TABLET PO SCH ×2 (09:21→21:24)
[2016-08-06] MEDS: DOCUSATE SODIUM 100 MG CAPSULE PO SCH ×2 (09:21→21:24)
[2016-08-06] MEDS: METOPROLOL TARTRATE 25 MG TABLET PO SCH ×2 (09:21→21:24)
[2016-08-06] MEDS: MULTIVITAMINS, THERAPEUTIC TABLET PO SCH (09:21)
[2016-08-06] MEDS: ASPIRIN 81 MG CHEWABLE TABLET PO SCH (09:21)
[2016-08-06] MEDS: VITAMINS A & D 60 GM OINTMENT TP SCH (09:22)
[2016-08-06] MEDS: MORPHINE SULFATE 4 MG/ML SYRINGE IVP PRN ×2 (09:36→23:09)
[2016-08-06 10:17] LABS: GLUCOSE,POINT OF CARE 103 MG/DL (70-110)
[2016-08-06] MEDS ORDERED: SODIUM CHLORIDE 0.9% 250 ML IV ONE (11:25)
[2016-08-06 12:04] VITALS: BP 120/62
[2016-08-06] MEDS ORDERED: DiphenhydrAMINE HCL 50 MG/ML VIAL IVP ONE (13:00)
[2016-08-06 14:32] LABS: ORGANISM ID Not indicated.
[2016-08-06] MEDS ORDERED: FUROSEMIDE 20 MG/2 ML VIAL IVP ONE (15:00)
[2016-08-06 16:03] VITALS: BP 111/53
[2016-08-06] MEDS: MAGNESIUM HYDROXIDE SUSPENSION 30 ML UDCUP PO PRN (16:40)
[2016-08-06] MEDS: INSULIN ASPART 100 UNITS/ML SQ PRN ×2 (18:17→21:25)
[2016-08-06 19:43] VITALS: BP 117/63
[2016-08-06] MEDS: ZOLPIDEM TARTRATE 5 MG TABLET PO PRN (21:24)
[2016-08-06] MEDS: ATORVASTATIN CALCIUM 40 MG TABLET PO SCH (21:24)
[2016-08-06] MEDS: INSULIN DETEMIR 100 UNITS/ML SQ SCH (21:26)
[2016-08-06 21:28] LABS: GLUCOSE COMMENT 1 Received Meds; GLUCOSE,POINT OF CARE 200 MG/DL (70-110)
[2016-08-07] VITALS (14 sets, daily range): BP systolic 98–121; BP diastolic 42–66
[2016-08-07] MEDS ORDERED: SODIUM CHLORIDE 0.9% 250 ML IV ONE (00:03)
[2016-08-07] MEDS: ACETAMINOPHEN/CODEINE 300-30 MG TABLET PO PRN ×2 (01:21→21:02)
[2016-08-07] MEDS: PIPERACILLIN SODIUM/TAZOBACTAM 2.25 GM in DEXTROSE 5%-WATER 50 ML IV SCH ×4 (03:55→21:05)
[2016-08-07 06:47] LABS: GLUCOSE COMMENT 1 Received Meds; GLUCOSE,POINT OF CARE 165 MG/DL (70-110)
[2016-08-07 06:47] LABS: GLUCOSE,POINT OF CARE 125 MG/DL (70-110)
[2016-08-07 06:52] LABS: GLUCOSE COMMENT 1 Received Meds; GLUCOSE,POINT OF CARE 157 MG/DL (70-110)
[2016-08-07 08:07] LABS: GLUCOSE,POINT OF CARE 92 MG/DL (70-110)
[2016-08-07] MEDS: PANTOPRAZOLE SODIUM 40 MG/VIAL IVP SCH (08:27)
[2016-08-07] MEDS: VANCOMYCIN HCL 750 MG in DEXTROSE 5%-WATER 150 ML IV SCH (08:27)
[2016-08-07] MEDS: DOCUSATE SODIUM 100 MG CAPSULE PO SCH ×2 (08:27→20:59)
[2016-08-07] MEDS: ASPIRIN 81 MG CHEWABLE TABLET PO SCH (08:27)
[2016-08-07] MEDS: MULTIVITAMINS, THERAPEUTIC TABLET PO SCH (08:28)
[2016-08-07] MEDS: DIVALPROEX SODIUM 500 MG ER TABLET PO SCH ×2 (08:28→20:59)
[2016-08-07] MEDS: VITAMINS A & D 60 GM OINTMENT TP SCH (08:28)
[2016-08-07] MEDS: METOPROLOL TARTRATE 25 MG TABLET PO SCH ×2 (08:28→21:00)
[2016-08-07] MEDS: RisperiDONE 3 MG TABLET PO SCH ×2 (08:28→20:59)
[2016-08-07 09:21] LABS: CALCIUM, TOTAL 8.3 mg/dL (8.8-10.5); CREATININE 2.62 mg/dL (0.60-1.30); POTASSIUM 4.7 mmol/L (3.5-5.1)
[2016-08-07 10:28] LABS: BASOPHILS # (AUTO) 0.08 K/uL (0.00-0.20); BASOPHILS % (AUTO) 0.9 % (0.0-2.0); EOSINOPHILS # (AUTO) 0.26 K/uL (0.00-0.70); EOSINOPHILS % (AUTO) 2.99 % (1.0-6.0); HEMATOCRIT 27.4 % (41-53); HEMOGLOBIN 8.9 g/dL (13.5-17.5); LYMPHOCYTES # (AUTO) 1.2 K/uL (1.0-4.8); LYMPHOCYTES % (AUTO) 13.8 % (22.0-44.0); MEAN CORPUSCULAR HEMOGLOBIN 27.2 pg (26.0-34.0); MEAN CORPUSCULAR HGB CONC 32.4 G/dL (31.0-37.0); MEAN CORPUSCULAR VOLUME 84 fL (80-100); MONOCYTES # (AUTO) 1.1 K/uL (0.1-1.0); MONOCYTES % (AUTO) 11.8 % (2.0-9.0); NEUTROPHILS # (AUTO) 6.2 K/uL (1.8-7.7); NEUTROPHILS % (AUTO) 70.5 % (40.0-70.0); PLATELET COUNT (AUTO) 193 K/uL (150-450); RED BLOOD CELL COUNT(AUTO) 3.26 MIL/uL (4.50-5.90); WHITE BLOOD COUNT (AUTO) 8.8 K/uL (4.5-11.0)
[2016-08-07 11:24] LABS: RBC MORPHOLOGY COMMENT ABNORMAL RBC MORPH
[2016-08-07 12:38] LABS: GLUCOSE,POINT OF CARE 135 MG/DL (70-110)
[2016-08-07] MEDS: MAGNESIUM HYDROXIDE SUSPENSION 30 ML UDCUP PO PRN (17:48)
[2016-08-07] MEDS: ATORVASTATIN CALCIUM 40 MG TABLET PO SCH (20:59)
[2016-08-07] MEDS: ZOLPIDEM TARTRATE 5 MG TABLET PO PRN (20:59)
[2016-08-07] MEDS: INSULIN ASPART 100 UNITS/ML SQ PRN (21:01)
[2016-08-07] MEDS: INSULIN DETEMIR 100 UNITS/ML SQ SCH (21:01)
[2016-08-08 04:46] VITALS: BP 131/59
[2016-08-08 06:10] LABS: BASOPHILS # (AUTO) 0.07 K/uL (0.00-0.20); BASOPHILS % (AUTO) 0.8 % (0.0-2.0); EOSINOPHILS # (AUTO) 0.67 K/uL (0.00-0.70); EOSINOPHILS % (AUTO) 7.38 % (1.0-6.0); HEMATOCRIT 28.6 % (41-53); HEMOGLOBIN 9.1 g/dL (13.5-17.5); LYMPHOCYTES # (AUTO) 1.4 K/uL (1.0-4.8); LYMPHOCYTES % (AUTO) 15.6 % (22.0-44.0); MEAN CORPUSCULAR HGB CONC 31.8 G/dL (31.0-37.0); MEAN CORPUSCULAR VOLUME 85 fL (80-100); MONOCYTES # (AUTO) 1.1 K/uL (0.1-1.0); MONOCYTES % (AUTO) 12.3 % (2.0-9.0); NEUTROPHILS # (AUTO) 5.8 K/uL (1.8-7.7); NEUTROPHILS % (AUTO) 63.9 % (40.0-70.0); PLATELET COUNT (AUTO) 198 K/uL (150-450); RED BLOOD CELL COUNT(AUTO) 3.37 MIL/uL (4.50-5.90); RED CELL DISTRIBUTION WIDTH 19.5 % (11.5-14.5)
[2016-08-08] MEDS: PIPERACILLIN SODIUM/TAZOBACTAM 2.25 GM in DEXTROSE 5%-WATER 50 ML IV SCH ×3 (06:12→16:48)
[2016-08-08] MEDS: ACETAMINOPHEN/CODEINE 300-30 MG TABLET PO PRN (06:12)
[2016-08-08 06:31] LABS: ANION GAP 6 mmol/L (8-16); CALCIUM, TOTAL 8.2 mg/dL (8.8-10.5); CARBON DIOXIDE 29 mmol/L (22-29); CHLORIDE 103 mmol/L (98-107); CREATINE KINASE, TOTAL 49 U/L (39-308); CREATININE 2.46 mg/dL (0.60-1.30); GLOMERULAR FILTR. RATE CALC 26 mL/min (>60); POTASSIUM 4.4 mmol/L (3.5-5.1); SODIUM SERUM 138 mmol/L (136-145); UREA NITROGEN, BLOOD 53 mg/dL (7-18)
[2016-08-08 07:28] LABS: B-TYPE NATRIURETIC PEPTIDE 3070 pg/mL (0-100)
[2016-08-08] MEDS: VANCOMYCIN HCL 750 MG in DEXTROSE 5%-WATER 150 ML IV SCH (08:00)
[2016-08-08 08:45] VITALS: BP 111/59
[2016-08-08] MEDS ORDERED: EPOETIN ALFA 10,000 UNITS/ML VIAL SQ SCH (09:00)
[2016-08-08 09:05] LABS: PROCALCITONIN (PCT) 0.69 ng/mL (<0.50)
[2016-08-08] MEDS: MULTIVITAMINS, THERAPEUTIC TABLET PO SCH (10:14)
[2016-08-08] MEDS: ASPIRIN 81 MG CHEWABLE TABLET PO SCH (10:14)
[2016-08-08] MEDS: DIVALPROEX SODIUM 500 MG ER TABLET PO SCH (10:14)
[2016-08-08] MEDS: METOPROLOL TARTRATE 25 MG TABLET PO SCH (10:14)
[2016-08-08] MEDS: RisperiDONE 3 MG TABLET PO SCH (10:14)
[2016-08-08] MEDS: VITAMINS A & D 60 GM OINTMENT TP SCH (10:14)
[2016-08-08] MEDS: PANTOPRAZOLE SODIUM 40 MG/VIAL IVP SCH (10:14)
[2016-08-08] MEDS: DOCUSATE SODIUM 100 MG CAPSULE PO SCH (10:14)
[2016-08-08] MEDS: ACETAMINOPHEN 325 MG TABLET PO PRN (10:18)
[2016-08-08 10:51] LABS: GLUCOSE,POINT OF CARE 103 MG/DL (70-110)
[2016-08-08 11:07] LABS: RBC MORPHOLOGY COMMENT ABNORMAL RBC MORPH
[2016-08-08 11:18] LABS: GLUCOSE,POINT OF CARE 165 MG/DL (70-110)
[2016-08-08 11:18] LABS: GLUCOSE,POINT OF CARE 80 MG/DL (70-110)
[2016-08-08 11:58] LABS: GLUCOSE COMMENT 1 Received Meds; GLUCOSE,POINT OF CARE 156 MG/DL (70-110)
[2016-08-08 12:01] VITALS: BP 134/50
[2016-08-08] MEDS: INSULIN ASPART 100 UNITS/ML SQ PRN (12:03)
[2016-08-08] MEDS ORDERED: HEPARIN SODIUM 1000 UNITS/NS 500 ML ONE (13:38)
[2016-08-08] MEDS ORDERED: ASPI81 PO (16:15)
[2016-08-08] MEDS ORDERED: METO25 PO (16:18)
[2016-08-08] MEDS ORDERED: PANT40TA25 PO (16:19)
[2016-08-08] MEDS ORDERED: PIPE2.255 IV (16:21)
[2016-08-08] MEDS ORDERED: VANC500FZ IV (16:23)
[2016-08-08] MEDS ORDERED: PETR113O TP (16:24)
[2016-08-08] MEDS ORDERED: AUD NEB (16:26)
[2016-08-08] MEDS ORDERED: IPRNEB IH (16:28)
[2016-08-08 19:51] LABS: GLUCOSE,POINT OF CARE 128 MG/DL (70-110)
== END 2016-08-08 18:07 | DRG 871 ==
LOC: EMS 14:28 → ICU 19:30 → 5N 08-03 18:45
PROVIDERS: ADMIT Internal Medicine Geriatric Medicine; ATTEND Internal Medicine Geriatric Medicine
PROC: 30233N1 Transfusion of Nonautologous Red Blood Cells into Peripheral Vein, Percutaneous Approach (ICD-10-PCS; principal; 2016-08-06)
PROC: 02HV33Z Insertion of Infusion Device into Superior Vena Cava, Percutaneous Approach (ICD-10-PCS; 2016-08-08)
PROC: B548ZZA Ultrasonography of Superior Vena Cava, Guidance (ICD-10-PCS; 2016-08-08)
DX: A41.9 Sepsis, unspecified organism (principal); I21.4 Non-ST elevation (NSTEMI) myocardial infarction; E43 Unspecified severe protein-calorie malnutrition; J18.9 Pneumonia, unspecified organism; N17.9 Acute kidney failure, unspecified; I50.1 Left ventricular failure, unspecified; I13.0 Hypertensive heart and chronic kidney disease with heart failure and stage 1 through stage 4 chronic kidney disease, or unspecified chronic kidney disease; E11.52 Type 2 diabetes mellitus with diabetic peripheral angiopathy with gangrene; J44.0 Chronic obstructive pulmonary disease with (acute) lower respiratory infection; D64.9 Anemia, unspecified; E11.21 Type 2 diabetes mellitus with diabetic nephropathy; I50.9 Heart failure, unspecified; E78.5 Hyperlipidemia, unspecified; E03.9 Hypothyroidism, unspecified; J44.9 Chronic obstructive pulmonary disease, unspecified; N18.3 Chronic kidney disease, stage 3 (moderate); I73.9 Peripheral vascular disease, unspecified; E11.65 Type 2 diabetes mellitus with hyperglycemia; F25.9 Schizoaffective disorder, unspecified; F91.9 Conduct disorder, unspecified; I25.10 Atherosclerotic heart disease of native coronary artery without angina pectoris; I34.0 Nonrheumatic mitral (valve) insufficiency; R09.02 Hypoxemia; S91.302A Unspecified open wound, left foot, initial encounter; Z87.11 Personal history of peptic ulcer disease; Z87.891 Personal history of nicotine dependence; Z89.511 Acquired absence of right leg below knee; Z91.15 Patient's noncompliance with renal dialysis; Z91.19 Patient's noncompliance with other medical treatment and regimen; Z22.322 Carrier or suspected carrier of Methicillin resistant Staphylococcus aureus
CPT/HCPCS: 36569; 51702; 71250; 82306; 82570; 82607; 82746; 82962; 83036; 83540; 83550; 83605; 83735; 84145; 84156; 84300; 84439; 84443; 84540; 86850; 86900; 86901; 86920; 87040; 87070; 87081; 87205; 87449; 87899; 93005; 96365; 96366; 96375; 97162; 97166; 97530; 97535; 99285; C9113; J0885; J1644; J1940; J2060; J2270; J2543; J3370; J3475; J3490; J7050; J7060; P9016

== ENCOUNTER → 2016-09-13 | Outpatient (CLI) | payer MEDICARE, OTHER ==
[~2016-09-13] VITALS: Ht 180.3 cm; Wt 70.6 kg
[~2016-09-13] MED LIST changes: +AMIN30LI28 PO; +ASCO500 PO; +ASPI81 PO; +AUD NEB; +HYDR-309 PO; +IPRNEB IH; +LIDOCAINE HCL 2% 5 ML JELLY TP ONE; +METO25 PO; +PANT40TA25 PO; +PETR113O TP; +PIPE2.255 IV; +SENN-30 PO; +TRAZ-144 PO; +VANC500FZ IV
[2016-09-13 14:11] VITALS: BP 148/57
== END | disposition home or self-care (01) ==
LOC: HBOWC 13:50
PROVIDERS: ATTEND Emergency Medicine
DX: E11.621 Type 2 diabetes mellitus with foot ulcer (principal); L97.421 Non-pressure chronic ulcer of left heel and midfoot limited to breakdown of skin; L97.521 Non-pressure chronic ulcer of other part of left foot limited to breakdown of skin; E11.52 Type 2 diabetes mellitus with diabetic peripheral angiopathy with gangrene; E11.21 Type 2 diabetes mellitus with diabetic nephropathy; E11.65 Type 2 diabetes mellitus with hyperglycemia; E11.22 Type 2 diabetes mellitus with diabetic chronic kidney disease; I13.0 Hypertensive heart and chronic kidney disease with heart failure and stage 1 through stage 4 chronic kidney disease, or unspecified chronic kidney disease; N18.3 Chronic kidney disease, stage 3 (moderate); I50.43 Acute on chronic combined systolic (congestive) and diastolic (congestive) heart failure; N17.9 Acute kidney failure, unspecified; I25.10 Atherosclerotic heart disease of native coronary artery without angina pectoris; J44.9 Chronic obstructive pulmonary disease, unspecified; E78.5 Hyperlipidemia, unspecified; E03.9 Hypothyroidism, unspecified; R09.02 Hypoxemia; I21.4 Non-ST elevation (NSTEMI) myocardial infarction; F25.9 Schizoaffective disorder, unspecified; F31.9 Bipolar disorder, unspecified; Z87.891 Personal history of nicotine dependence; Z87.01 Personal history of pneumonia (recurrent); Z89.511 Acquired absence of right leg below knee; Z98.49 Cataract extraction status, unspecified eye
CPT/HCPCS: 97597

== ENCOUNTER → 2016-09-20 | Outpatient (CLI) | payer MEDICARE, OTHER ==
[~2016-09-20] MED LIST changes: -BUME1TAB30 PO; -LIDOCAINE HCL 2% 5 ML JELLY TP ONE; -PIPE2.255 IV; -VANC500FZ IV
[2016-09-20 12:21] VITALS: BP 104/55
== END | disposition home or self-care (01) ==
LOC: HBOWC 10:40
PROVIDERS: ATTEND Emergency Medicine
DX: E11.621 Type 2 diabetes mellitus with foot ulcer (principal); L97.521 Non-pressure chronic ulcer of other part of left foot limited to breakdown of skin; E11.22 Type 2 diabetes mellitus with diabetic chronic kidney disease; E11.52 Type 2 diabetes mellitus with diabetic peripheral angiopathy with gangrene; E11.40 Type 2 diabetes mellitus with diabetic neuropathy, unspecified; I13.0 Hypertensive heart and chronic kidney disease with heart failure and stage 1 through stage 4 chronic kidney disease, or unspecified chronic kidney disease; N18.4 Chronic kidney disease, stage 4 (severe); I50.42 Chronic combined systolic (congestive) and diastolic (congestive) heart failure; F31.9 Bipolar disorder, unspecified; E78.5 Hyperlipidemia, unspecified; E03.9 Hypothyroidism, unspecified; F25.9 Schizoaffective disorder, unspecified; J44.9 Chronic obstructive pulmonary disease, unspecified; Z87.01 Personal history of pneumonia (recurrent); Z87.891 Personal history of nicotine dependence; Z89.511 Acquired absence of right leg below knee
CPT/HCPCS: 97597

== ENCOUNTER → 2016-09-27 | Outpatient (CLI) | payer MEDICARE, OTHER ==
[2016-09-27 14:24] VITALS: BP 140/60
== END | disposition home or self-care (01) ==
LOC: HBOWC 13:05
PROVIDERS: ATTEND Emergency Medicine
DX: E11.621 Type 2 diabetes mellitus with foot ulcer (principal); L97.521 Non-pressure chronic ulcer of other part of left foot limited to breakdown of skin; L97.421 Non-pressure chronic ulcer of left heel and midfoot limited to breakdown of skin; E11.51 Type 2 diabetes mellitus with diabetic peripheral angiopathy without gangrene; Z89.511 Acquired absence of right leg below knee; I25.10 Atherosclerotic heart disease of native coronary artery without angina pectoris; F31.9 Bipolar disorder, unspecified; E11.22 Type 2 diabetes mellitus with diabetic chronic kidney disease; I13.0 Hypertensive heart and chronic kidney disease with heart failure and stage 1 through stage 4 chronic kidney disease, or unspecified chronic kidney disease; N18.3 Chronic kidney disease, stage 3 (moderate); I50.43 Acute on chronic combined systolic (congestive) and diastolic (congestive) heart failure; E78.5 Hyperlipidemia, unspecified; E03.9 Hypothyroidism, unspecified; Z87.891 Personal history of nicotine dependence; Z87.01 Personal history of pneumonia (recurrent); F25.9 Schizoaffective disorder, unspecified; E11.21 Type 2 diabetes mellitus with diabetic nephropathy; E11.52 Type 2 diabetes mellitus with diabetic peripheral angiopathy with gangrene
CPT/HCPCS: 87070; 87147; 87205; 97597; 97598

== ENCOUNTER → 2016-10-11 | Outpatient (CLI) | payer MEDICARE, OTHER ==
[~2016-10-11] MED LIST changes: +DOXY100C PO; +LIDOCAINE HCL 2% 30 ML JELLY TP ONE
[2016-10-11 08:40] VITALS: BP 106/58
== END | disposition home or self-care (01) ==
LOC: HBOWC 07:59
PROVIDERS: ATTEND Emergency Medicine
DX: E11.621 Type 2 diabetes mellitus with foot ulcer (principal); L97.521 Non-pressure chronic ulcer of other part of left foot limited to breakdown of skin; E11.52 Type 2 diabetes mellitus with diabetic peripheral angiopathy with gangrene; L97.421 Non-pressure chronic ulcer of left heel and midfoot limited to breakdown of skin; I25.10 Atherosclerotic heart disease of native coronary artery without angina pectoris; F31.9 Bipolar disorder, unspecified; E78.5 Hyperlipidemia, unspecified; E03.9 Hypothyroidism, unspecified; E11.22 Type 2 diabetes mellitus with diabetic chronic kidney disease; I13.0 Hypertensive heart and chronic kidney disease with heart failure and stage 1 through stage 4 chronic kidney disease, or unspecified chronic kidney disease; N18.3 Chronic kidney disease, stage 3 (moderate); I50.43 Acute on chronic combined systolic (congestive) and diastolic (congestive) heart failure; E11.21 Type 2 diabetes mellitus with diabetic nephropathy; J44.9 Chronic obstructive pulmonary disease, unspecified; E11.40 Type 2 diabetes mellitus with diabetic neuropathy, unspecified; I21.4 Non-ST elevation (NSTEMI) myocardial infarction; Z87.01 Personal history of pneumonia (recurrent); Z87.891 Personal history of nicotine dependence; Z89.511 Acquired absence of right leg below knee
CPT/HCPCS: 97597; 97598

== ENCOUNTER → 2016-11-01 | Outpatient (CLI) | payer MEDICARE, OTHER ==
[~2016-11-01] MED LIST changes: +BUME1TAB17 PO; +CEFX1I IV; -DOXY100C PO; +FURO20 PO; -FURO40 PO; -LEVO100 PO; +LEVO150 PO; -LIDOCAINE HCL 2% 30 ML JELLY TP ONE; -LORA0.5T2 PO; +LORA1TAB3 PO; +MAGOX PO; +SENN-175 PO; -SENN-30 PO; -TRAZ-144 PO; +TRAZ150 PO; +VANC1IV IV
[2016-11-01 12:18] VITALS: BP 100/59
== END | disposition home or self-care (01) ==
LOC: HBOWC 10:48
PROVIDERS: ATTEND Emergency Medicine
DX: T87.89 Other complications of amputation stump (principal); I25.10 Atherosclerotic heart disease of native coronary artery without angina pectoris; F31.9 Bipolar disorder, unspecified; E11.22 Type 2 diabetes mellitus with diabetic chronic kidney disease; I13.0 Hypertensive heart and chronic kidney disease with heart failure and stage 1 through stage 4 chronic kidney disease, or unspecified chronic kidney disease; N18.4 Chronic kidney disease, stage 4 (severe); I50.42 Chronic combined systolic (congestive) and diastolic (congestive) heart failure; I50.43 Acute on chronic combined systolic (congestive) and diastolic (congestive) heart failure; J44.9 Chronic obstructive pulmonary disease, unspecified; E78.5 Hyperlipidemia, unspecified; E03.9 Hypothyroidism, unspecified; E11.21 Type 2 diabetes mellitus with diabetic nephropathy; E11.52 Type 2 diabetes mellitus with diabetic peripheral angiopathy with gangrene; I25.2 Old myocardial infarction; Z86.14 Personal history of Methicillin resistant Staphylococcus aureus infection; Z99.2 Dependence on renal dialysis; Z87.891 Personal history of nicotine dependence; Z87.01 Personal history of pneumonia (recurrent); Z89.412 Acquired absence of left great toe; Z79.82 Long term (current) use of aspirin; Y83.5 Amputation of limb(s) as the cause of abnormal reaction of the patient, or of later complication, without mention of misadventure at the time of the procedure

== ENCOUNTER → 2016-11-08 | Outpatient (CLI) | payer MEDICARE, OTHER ==
[~2016-11-08] MED LIST changes: +BUDE0.5A3 NEB; +DOCU250C91 PO; +HYDR-4031 PO; +LEVO100 PO; +LEVO250 PO; +LURA60TA PO; +PREDAOS OU; +SULF1TAB42 PO; +TIOT185 IH
[2016-11-08 08:10] VITALS: BP 92/47
[2016-11-08 08:26] VITALS: BP 141/56
== END | disposition home or self-care (01) ==
LOC: HBOWC 07:22
PROVIDERS: ATTEND Emergency Medicine
DX: T87.89 Other complications of amputation stump (principal); S91.302D Unspecified open wound, left foot, subsequent encounter; I99.8 Other disorder of circulatory system; I42.9 Cardiomyopathy, unspecified; I25.10 Atherosclerotic heart disease of native coronary artery without angina pectoris; F31.9 Bipolar disorder, unspecified; E11.22 Type 2 diabetes mellitus with diabetic chronic kidney disease; I13.0 Hypertensive heart and chronic kidney disease with heart failure and stage 1 through stage 4 chronic kidney disease, or unspecified chronic kidney disease; N18.4 Chronic kidney disease, stage 4 (severe); I50.43 Acute on chronic combined systolic (congestive) and diastolic (congestive) heart failure; J44.9 Chronic obstructive pulmonary disease, unspecified; E78.5 Hyperlipidemia, unspecified; E03.9 Hypothyroidism, unspecified; I25.2 Old myocardial infarction; E11.21 Type 2 diabetes mellitus with diabetic nephropathy; E11.52 Type 2 diabetes mellitus with diabetic peripheral angiopathy with gangrene; E11.40 Type 2 diabetes mellitus with diabetic neuropathy, unspecified; Z89.511 Acquired absence of right leg below knee; Z86.14 Personal history of Methicillin resistant Staphylococcus aureus infection; Z87.891 Personal history of nicotine dependence; Z87.01 Personal history of pneumonia (recurrent); Z79.4 Long term (current) use of insulin; Z99.2 Dependence on renal dialysis; Z79.82 Long term (current) use of aspirin; Y83.5 Amputation of limb(s) as the cause of abnormal reaction of the patient, or of later complication, without mention of misadventure at the time of the procedure; X58.XXXD Exposure to other specified factors, subsequent encounter

== ENCOUNTER → 2016-11-15 | Outpatient (CLI) | payer MEDICARE, OTHER ==
[~2016-11-15] MED LIST changes: +LIDOCAINE HCL 2% 5 ML JELLY TP ONE; -SENN-175 PO; -VANC1IV IV; -ZOLP5 PO
[2016-11-15 14:14] VITALS: BP 100/58
== END | disposition home or self-care (01) ==
LOC: HBOWC 08:31
PROVIDERS: ATTEND Emergency Medicine
DX: E11.621 Type 2 diabetes mellitus with foot ulcer (principal); L97.421 Non-pressure chronic ulcer of left heel and midfoot limited to breakdown of skin; L97.521 Non-pressure chronic ulcer of other part of left foot limited to breakdown of skin; L89.152 Pressure ulcer of sacral region, stage 2; I25.10 Atherosclerotic heart disease of native coronary artery without angina pectoris; F31.9 Bipolar disorder, unspecified; J44.9 Chronic obstructive pulmonary disease, unspecified; E11.22 Type 2 diabetes mellitus with diabetic chronic kidney disease; I13.0 Hypertensive heart and chronic kidney disease with heart failure and stage 1 through stage 4 chronic kidney disease, or unspecified chronic kidney disease; N18.4 Chronic kidney disease, stage 4 (severe); I50.43 Acute on chronic combined systolic (congestive) and diastolic (congestive) heart failure; E11.21 Type 2 diabetes mellitus with diabetic nephropathy; E11.52 Type 2 diabetes mellitus with diabetic peripheral angiopathy with gangrene; E11.40 Type 2 diabetes mellitus with diabetic neuropathy, unspecified; E78.5 Hyperlipidemia, unspecified; E03.9 Hypothyroidism, unspecified; I25.2 Old myocardial infarction; Z99.2 Dependence on renal dialysis; Z79.82 Long term (current) use of aspirin; Z79.4 Long term (current) use of insulin; Z86.14 Personal history of Methicillin resistant Staphylococcus aureus infection; Z87.891 Personal history of nicotine dependence; Z87.01 Personal history of pneumonia (recurrent); Z89.422 Acquired absence of other left toe(s)
CPT/HCPCS: 11042; 11045

== ENCOUNTER → 2016-11-22 | Outpatient (CLI) | payer MEDICARE, OTHER ==
[~2016-11-22] MED LIST changes: -LIDOCAINE HCL 2% 5 ML JELLY TP ONE
[2016-11-22 09:30] VITALS: BP 100/61
== END | disposition home or self-care (01) ==
LOC: HBOWC 08:26
PROVIDERS: ATTEND Emergency Medicine
DX: E11.621 Type 2 diabetes mellitus with foot ulcer (principal); L97.521 Non-pressure chronic ulcer of other part of left foot limited to breakdown of skin; L97.421 Non-pressure chronic ulcer of left heel and midfoot limited to breakdown of skin; E11.622 Type 2 diabetes mellitus with other skin ulcer; L97.821 Non-pressure chronic ulcer of other part of left lower leg limited to breakdown of skin; L89.629 Pressure ulcer of left heel, unspecified stage; L89.152 Pressure ulcer of sacral region, stage 2; I25.10 Atherosclerotic heart disease of native coronary artery without angina pectoris; F31.9 Bipolar disorder, unspecified; J44.9 Chronic obstructive pulmonary disease, unspecified; E78.5 Hyperlipidemia, unspecified; E03.9 Hypothyroidism, unspecified; I25.2 Old myocardial infarction; E11.21 Type 2 diabetes mellitus with diabetic nephropathy; E11.40 Type 2 diabetes mellitus with diabetic neuropathy, unspecified; E11.52 Type 2 diabetes mellitus with diabetic peripheral angiopathy with gangrene; E11.22 Type 2 diabetes mellitus with diabetic chronic kidney disease; I13.0 Hypertensive heart and chronic kidney disease with heart failure and stage 1 through stage 4 chronic kidney disease, or unspecified chronic kidney disease; N18.4 Chronic kidney disease, stage 4 (severe); I50.43 Acute on chronic combined systolic (congestive) and diastolic (congestive) heart failure; I21.4 Non-ST elevation (NSTEMI) myocardial infarction; Z87.01 Personal history of pneumonia (recurrent); Z86.14 Personal history of Methicillin resistant Staphylococcus aureus infection; Z87.891 Personal history of nicotine dependence; Z89.412 Acquired absence of left great toe; Z89.422 Acquired absence of other left toe(s); Z89.511 Acquired absence of right leg below knee; Z79.82 Long term (current) use of aspirin; Z79.4 Long term (current) use of insulin; Z99.2 Dependence on renal dialysis
CPT/HCPCS: 11042; 11045

== ENCOUNTER → 2016-11-29 | Outpatient (CLI) | payer MEDICARE, OTHER ==
[~2016-11-29] MED LIST changes: +LIDOCAINE HCL 2% 5 ML JELLY TP ONE
[2016-11-29 09:43] VITALS: BP 111/47
== END | disposition home or self-care (01) ==
LOC: HBOWC 09:19
PROVIDERS: ATTEND Emergency Medicine
DX: E11.621 Type 2 diabetes mellitus with foot ulcer (principal); L97.521 Non-pressure chronic ulcer of other part of left foot limited to breakdown of skin; L97.421 Non-pressure chronic ulcer of left heel and midfoot limited to breakdown of skin; E11.622 Type 2 diabetes mellitus with other skin ulcer; L89.152 Pressure ulcer of sacral region, stage 2; I25.10 Atherosclerotic heart disease of native coronary artery without angina pectoris; F31.9 Bipolar disorder, unspecified; J44.9 Chronic obstructive pulmonary disease, unspecified; E11.22 Type 2 diabetes mellitus with diabetic chronic kidney disease; I13.0 Hypertensive heart and chronic kidney disease with heart failure and stage 1 through stage 4 chronic kidney disease, or unspecified chronic kidney disease; N18.4 Chronic kidney disease, stage 4 (severe); I50.9 Heart failure, unspecified; E78.5 Hyperlipidemia, unspecified; E03.9 Hypothyroidism, unspecified; Z79.4 Long term (current) use of insulin; I25.2 Old myocardial infarction; Z87.891 Personal history of nicotine dependence; Z87.01 Personal history of pneumonia (recurrent); E11.40 Type 2 diabetes mellitus with diabetic neuropathy, unspecified; E11.52 Type 2 diabetes mellitus with diabetic peripheral angiopathy with gangrene
CPT/HCPCS: 11042; 11045

== ENCOUNTER → 2016-12-06 | Outpatient (CLI) | payer MEDICARE, OTHER ==
[~2016-12-06] MED LIST changes: +COLLAGENASE 250 UNITS/GM 30 GM OINTMENT TP ONE
[2016-12-06 12:39] VITALS: BP 119/60
== END | disposition home or self-care (01) ==
LOC: HBOWC 10:31
PROVIDERS: ATTEND Emergency Medicine
DX: E11.621 Type 2 diabetes mellitus with foot ulcer (principal); L97.421 Non-pressure chronic ulcer of left heel and midfoot limited to breakdown of skin; L97.521 Non-pressure chronic ulcer of other part of left foot limited to breakdown of skin; L89.629 Pressure ulcer of left heel, unspecified stage; E11.622 Type 2 diabetes mellitus with other skin ulcer; L97.822 Non-pressure chronic ulcer of other part of left lower leg with fat layer exposed; E11.40 Type 2 diabetes mellitus with diabetic neuropathy, unspecified; E11.52 Type 2 diabetes mellitus with diabetic peripheral angiopathy with gangrene; E11.21 Type 2 diabetes mellitus with diabetic nephropathy; E11.22 Type 2 diabetes mellitus with diabetic chronic kidney disease; I13.0 Hypertensive heart and chronic kidney disease with heart failure and stage 1 through stage 4 chronic kidney disease, or unspecified chronic kidney disease; N18.4 Chronic kidney disease, stage 4 (severe); I50.43 Acute on chronic combined systolic (congestive) and diastolic (congestive) heart failure; I25.10 Atherosclerotic heart disease of native coronary artery without angina pectoris; F31.9 Bipolar disorder, unspecified; J44.9 Chronic obstructive pulmonary disease, unspecified; E78.4 Other hyperlipidemia; E03.8 Other specified hypothyroidism; I25.2 Old myocardial infarction; F25.8 Other schizoaffective disorders; Z99.2 Dependence on renal dialysis; Z79.4 Long term (current) use of insulin; Z79.82 Long term (current) use of aspirin; Z87.891 Personal history of nicotine dependence; Z89.422 Acquired absence of other left toe(s); Z89.412 Acquired absence of left great toe; Z89.511 Acquired absence of right leg below knee
CPT/HCPCS: 11042; 11045; Z7610

== ENCOUNTER 2017-01-14 00:31 | Emergency (ER) | payer MEDICARE, OTHER ==
[~2017-01-14] VITALS: Ht 180.3 cm; Wt 70.5 kg
[~2017-01-14 00:31] MED LIST changes: -BUDE0.5A3 NEB; -CEFX1I IV; -COLLAGENASE 250 UNITS/GM 30 GM OINTMENT TP ONE; -DOCU250C91 PO; -HYDR-4031 PO; -LEVO100 PO; -LEVO250 PO; -LIDOCAINE HCL 2% 5 ML JELLY TP ONE; -LURA60TA PO; -PREDAOS OU; -SULF1TAB42 PO; -TIOT185 IH
[2017-01-14] MEDS ORDERED: PANT40TA25 PO (00:56)
[2017-01-14] MEDS ORDERED: LEVO250 PO (00:56)
[2017-01-14] MEDS ORDERED: HYDR-4031 PO (00:56)
[2017-01-14] MEDS ORDERED: BUDE0.5A3 NEB (00:56)
[2017-01-14] MEDS ORDERED: TIOT185 IH (00:56)
[2017-01-14] MEDS ORDERED: LEVO100 PO (00:56)
[2017-01-14] MEDS ORDERED: SULF1TAB42 PO (00:56)
[2017-01-14] MEDS ORDERED: PREDAOS OU (00:56)
[2017-01-14] MEDS ORDERED: LURA60TA PO (00:56)
[2017-01-14] MEDS ORDERED: DOCU250C91 PO (00:56)
[2017-01-14 00:57] LABS: GLUCOSE,POINT OF CARE 141 MG/DL (70-110)
[2017-01-14 02:30] LABS: BASOPHILS % (AUTO) 0.5 % (0.0-2.0); EOSINOPHILS % (AUTO) 4.5 % (1.0-6.0); HEMATOCRIT 22.4 % (41-53); HEMOGLOBIN 7.3 g/dL (13.5-17.5); LYMPHOCYTES # (AUTO) 1.4 K/uL (1.0-4.8); LYMPHOCYTES % (AUTO) 19.2 % (22.0-44.0); MEAN CORPUSCULAR HEMOGLOBIN 28.5 pg (26.0-34.0); MEAN CORPUSCULAR HGB CONC 32.6 G/dL (31.0-37.0); MEAN CORPUSCULAR VOLUME 87 fL (80-100); MONOCYTES # (AUTO) 0.7 K/uL (0.1-1.0); MONOCYTES % (AUTO) 9.7 % (2.0-9.0); NEUTROPHILS # (AUTO) 4.7 K/uL (1.8-7.7); NEUTROPHILS % (AUTO) 66.1 % (40.0-70.0); PLATELET COUNT (AUTO) 221 K/uL (150-450); RED BLOOD CELL COUNT(AUTO) 2.57 MIL/uL (4.50-5.90); WHITE BLOOD COUNT (AUTO) 7.1 K/uL (4.5-11.0)
[2017-01-14 02:41] LABS: CALCIUM, TOTAL 8.5 mg/dL (8.8-10.5); CREATININE 1.33 mg/dL (0.60-1.30); POTASSIUM 4.5 mmol/L (3.5-5.1)
[2017-01-14 02:47] LABS: ALBUMIN 2.2 g/dL (3.4-5.0); BILIRUBIN,TOTAL 0.2 mg/dL (0.1-1.0); TOTAL PROTEIN, SERUM 5.6 g/dL (6.4-8.2)
[2017-01-14] MEDS ORDERED: LEVOFLOXACIN 750 MG/D5% WATER 150 ML IV ONE (03:15)
[2017-01-14 05:00] VITALS: BP 125/69
== END 2017-01-14 05:19 | disposition home or self-care (01) ==
LOC: EMS 00:36
DX: J18.9 Pneumonia, unspecified organism (principal); N18.9 Chronic kidney disease, unspecified; E11.22 Type 2 diabetes mellitus with diabetic chronic kidney disease; I13.0 Hypertensive heart and chronic kidney disease with heart failure and stage 1 through stage 4 chronic kidney disease, or unspecified chronic kidney disease; I25.10 Atherosclerotic heart disease of native coronary artery without angina pectoris; I25.2 Old myocardial infarction; E03.9 Hypothyroidism, unspecified; Z87.891 Personal history of nicotine dependence
CPT/HCPCS: 36415; 71010; 80053; 82962; 85025; 87040; 96365; 99285; J1956

== ENCOUNTER 2017-03-04 11:02 | Emergency (ER) | payer MEDICARE, OTHER ==
[~2017-03-04] VITALS: Ht 180.3 cm; Wt 77.9 kg
[~2017-03-04 11:02] MED LIST changes: -ACET1TAB12 PO; -AMIN30LI28 PO; +BUDE0.5A3 NEB; -BUME1TAB17 PO; +DOCU250C91 PO; -DSS100 PO; -EPOE10IM SQ; -HALOD100I IM; +HYDR-4031 PO; -INSU100V12 SQ; +LEVO100 PO; +LEVO250 PO; -LORA1TAB3 PO; +LURA60TA PO; -ONDA4 PO; -PETR113O TP; +PREDAOS OU; +SULF1TAB42 PO; +TIOT185 IH
[2017-03-04 11:37] LABS: BASOPHILS # (AUTO) 0.04 K/uL (0.00-0.20); BASOPHILS % (AUTO) 0.8 % (0.0-2.0); EOSINOPHILS # (AUTO) 0.29 K/uL (0.00-0.70); EOSINOPHILS % (AUTO) 5.35 % (1.0-6.0); HEMATOCRIT 23.7 % (41-53); HEMOGLOBIN 7.7 g/dL (13.5-17.5); LYMPHOCYTES # (AUTO) 1.2 K/uL (1.0-4.8); LYMPHOCYTES % (AUTO) 22.6 % (22.0-44.0); MEAN CORPUSCULAR HEMOGLOBIN 27.2 pg (26.0-34.0); MEAN CORPUSCULAR HGB CONC 32.5 G/dL (31.0-37.0); MEAN CORPUSCULAR VOLUME 84 fL (80-100); MONOCYTES # (AUTO) 0.6 K/uL (0.1-1.0); NEUTROPHILS # (AUTO) 3.3 K/uL (1.8-7.7); NEUTROPHILS % (AUTO) 61.3 % (40.0-70.0); PLATELET COUNT (AUTO) 167 K/uL (150-450); RED BLOOD CELL COUNT(AUTO) 2.84 MIL/uL (4.50-5.90); RED CELL DISTRIBUTION WIDTH 16.5 % (11.5-14.5)
[2017-03-04 11:47] LABS: ANION GAP 5 mmol/L (8-16); CALCIUM, TOTAL 8.5 mg/dL (8.8-10.5); CARBON DIOXIDE 28 mmol/L (22-29); CHLORIDE 101 mmol/L (98-107); GLOMERULAR FILTR. RATE CALC 37 mL/min (>60); GLUCOSE,RANDOM 102 mg/dL (70-110); POTASSIUM 5.2 mmol/L (3.5-5.1); SODIUM SERUM 134 mmol/L (136-145); UREA NITROGEN, BLOOD 54 mg/dL (7-18)
[2017-03-04 11:52] LABS: ALANINE AMINOTRANSFERASE 24 U/L (12-78); ALBUMIN 2.6 g/dL (3.4-5.0); ALKALINE PHOSPHATASE 86 U/L (46-116); ASPARTATE AMINOTRANSFERASE 15 U/L (15-37); BILIRUBIN,TOTAL 0.2 mg/dL (0.1-1.0); TOTAL PROTEIN, SERUM 6.1 g/dL (6.4-8.2)
[2017-03-04 11:54] LABS: TROPONIN I 0.02 ng/mL (0.00-0.05)
[2017-03-04 11:57] LABS: B-TYPE NATRIURETIC PEPTIDE 613 pg/mL (0-100)
[2017-03-04] MEDS ORDERED: SODIUM POLYSTYRENE SULFONATE 15 GM/60 ML SUSPENSION BOTTLE PO ONE (13:00)
[2017-03-04 13:08] LABS: AMPHET/METH SCREEN,URINE NEGATIVE (NEGATIVE); BARBITURATE SCREEN, URINE NEGATIVE (NEGATIVE); BENZODIAZEPINES SCREEN,URINE NEGATIVE (NEGATIVE); CANNABINOID SCREEN,URINE NEGATIVE (NEGATIVE); COCAINE SCREEN,URINE NEGATIVE (NEGATIVE); METHADONE SCREEN, URINE NEGATIVE (NEGATIVE); OPIATE SCREEN,URINE POSITIVE (NEGATIVE)
[2017-03-04 13:15] LABS: PHENCYCLIDINE SCREEN,URINE NEGATIVE (NEGATIVE)
[2017-03-04 13:29] LABS: APPEARANCE,URINE CLEAR (CLEAR); BILIRUBIN,URINE NEGATIVE (NEGATIVE); GLUCOSE, URINE (UA) NEGATIVE (NEGATIVE); KETONES,URINE NEGATIVE (NEGATIVE); LEUKOCYTE ESTERASE ,URINE NEGATIVE (NEGATIVE); NITRATE,URINE NEGATIVE (NEGATIVE); OCCULT BLOOD,URINE NEGATIVE (NEGATIVE); PH,URINE 5.5 (5.0-8.0); PROTEIN,URINE NEGATIVE (NEGATIVE); UROBILINOGEN,URINE 0.2 mg/dL (<=1.0)
[2017-03-04] MEDS ORDERED: LACTULOSE 20 GM/30 ML SOLUTION UDCUP PO ONE (15:30)
[2017-03-04 16:17] VITALS: BP 125/65
== END 2017-03-04 16:20 | disposition home or self-care (01) ==
LOC: EMS 11:05
DX: E72.20 Disorder of urea cycle metabolism, unspecified (principal); D64.9 Anemia, unspecified; E87.5 Hyperkalemia; I12.9 Hypertensive chronic kidney disease with stage 1 through stage 4 chronic kidney disease, or unspecified chronic kidney disease; E11.22 Type 2 diabetes mellitus with diabetic chronic kidney disease; N18.9 Chronic kidney disease, unspecified; I25.10 Atherosclerotic heart disease of native coronary artery without angina pectoris; E03.9 Hypothyroidism, unspecified; I25.2 Old myocardial infarction; Z87.891 Personal history of nicotine dependence; Z79.82 Long term (current) use of aspirin; Z79.4 Long term (current) use of insulin
CPT/HCPCS: 36415; 71045; 80053; 80307; 81003; 82140; 83880; 84484; 85025; 93005; 99285; G0480

== ENCOUNTER 2018-04-24 12:46 | Emergency (ER) | payer MEDICARE, OTHER ==
[~2018-04-24] VITALS: Ht 172.7 cm; Wt 63.0 kg
[~2018-04-24 12:46] MED LIST changes: -CLOP75 PO; +CLOP75TA3 PO; -LEVO100 PO
[2018-04-24] MEDS ORDERED: INSU100V12 SQ (13:10)
[2018-04-24] MEDS ORDERED: LORA0.5T2 PO (13:10)
[2018-04-24] MEDS ORDERED: IPRNEB IH (13:10)
[2018-04-24 13:38] LABS: BASOPHILS % (AUTO) 0.6 % (0.0-2.0); EOSINOPHILS % (AUTO) 0.3 % (1.0-6.0); HEMATOCRIT 26.3 % (41-53); HEMOGLOBIN 8.9 g/dL (13.5-17.5); LYMPHOCYTES # (AUTO) 1.7 K/uL (1.0-4.8); LYMPHOCYTES % (AUTO) 10.5 % (22.0-44.0); MEAN CORPUSCULAR HEMOGLOBIN 30.1 pg (26.0-34.0); MEAN CORPUSCULAR HGB CONC 33.6 G/dL (31.0-37.0); MEAN CORPUSCULAR VOLUME 90 fL (80-100); MONOCYTES # (AUTO) 1.6 K/uL (0.1-1.0); MONOCYTES % (AUTO) 10.1 % (2.0-9.0); NEUTROPHILS # (AUTO) 12.6 K/uL (1.8-7.7); NEUTROPHILS % (AUTO) 78.5 % (40.0-70.0); PLATELET COUNT (AUTO) 186 K/uL (150-450); RED BLOOD CELL COUNT(AUTO) 2.94 MIL/uL (4.50-5.90); RED CELL DISTRIBUTION WIDTH 14.6 % (11.5-14.5)
[2018-04-24 13:51] LABS: CALCIUM, TOTAL 9.1 mg/dL (8.8-10.5); CREATININE 1.89 mg/dL (0.60-1.30); POTASSIUM 4.5 mmol/L (3.5-5.1)
[2018-04-24 13:57] LABS: ALBUMIN 2.2 g/dL (3.4-5.0); BILIRUBIN,TOTAL 0.3 mg/dL (0.1-1.0); TOTAL PROTEIN, SERUM 5.5 g/dL (6.4-8.2)
[2018-04-24] MEDS ORDERED: CefTRIAXone SODIUM 1 GM/VIAL IM ONE (18:15)
[2018-04-24] MEDS ORDERED: LIDOCAINE/PF 1% 2 ML VIAL IM ONE (18:15)
[2018-04-24 20:18] VITALS: BP 121/75
[2018-04-24 20:41] LABS: APPEARANCE,URINE CLEAR (CLEAR); BILIRUBIN,URINE NEGATIVE (NEGATIVE); GLUCOSE, URINE (UA) NEGATIVE (NEGATIVE); KETONES,URINE NEGATIVE (NEGATIVE); LEUKOCYTE ESTERASE ,URINE NEGATIVE (NEGATIVE); NITRATE,URINE NEGATIVE (NEGATIVE); OCCULT BLOOD,URINE NEGATIVE (NEGATIVE); PROTEIN,URINE NEGATIVE (NEGATIVE); UROBILINOGEN,URINE 0.2 mg/dL (<=1.0)
[2018-04-24 21:00] LABS: BACTERIA,URINE None Seen /HPF (None Seen); RBC,URINE None Seen /HPF (0-2); SQUAMOUS EPITHELIAL CELL,UR Rare /LPF (None Seen); WBC,URINE 0-2 /HPF (0-5)
== END 2018-04-24 20:59 | disposition home or self-care (01) ==
LOC: EDUNIT# 12:46 → EMS 12:49
DX: D72.829 Elevated white blood cell count, unspecified (principal); N39.0 Urinary tract infection, site not specified; E03.9 Hypothyroidism, unspecified; I10 Essential (primary) hypertension; E11.9 Type 2 diabetes mellitus without complications; I25.10 Atherosclerotic heart disease of native coronary artery without angina pectoris; F20.9 Schizophrenia, unspecified; Z79.899 Other long term (current) drug therapy; Z79.82 Long term (current) use of aspirin; Z87.891 Personal history of nicotine dependence
CPT/HCPCS: 36415; 70450; 71045; 80053; 81001; 82948; 84484; 85025; 93005; 96372; 99285; J0696; J3490